=== PATIENT | male | born 1960 | race Caucasian/White ===

== ENCOUNTER 2017-06-08 13:19 | Inpatient (IN) | payer OTHER ==
[~2017-06-08] VITALS: Ht 180.3 cm; Wt 89.5 kg
[2017-06-08] VITALS (14 sets, daily range): BP systolic 90–140; BP diastolic 57–82; PULSE 49–71; RESP 16–20; TEMP 98.1–98.7; O2SAT 97–99
[2017-06-08] MEDS ORDERED: LISI20TA3 PO (13:31)
[2017-06-08] MEDS ORDERED: LIDOCAINE VISCOUS 2% SOLN 15 ML UDC PO ONE (13:45)
[2017-06-08] MEDS ORDERED: ALUMINUM/MAGNESIUM/SIMETH 30 ML CUP PO ONE (13:45)
--- NOTE | 2017-06-08 14:04 | PD ---
HPI Chief Complaint: Syncope/Near-Syncope Time Seen by Provider: 13:42 Travel History International Travel<30 days: No Contact w/Intl Traveler<30days: No Traveled to known affect area: No History of Present Illness HPI Patient presents with complaints of chest discomfort aggravated with deep inspiration. States he feels as if his lungs are inflamed. Denies any radiation to left arm or left neck. Denies any diaphoresis or shortness of breath. Nondiabetic. Positive history of hypertension and hyperlipidemia. Nonsmoker. No family history cardiac disease. Reports it was initially aggravated Friday after clearing a floor with heavy lifting. Symptoms resolved on . Patient completed the work on Friday with persistent discomfort through today. Denies any wheezing. PFSH Past Medical History Hypertension: Yes Medical other: Yes (PE) Past Surgical History Tonsillectomy: Yes Other Surgery: Yes (VARICOSE VEINS) Social History Alcohol Use: Yes Tobacco Use: No Substance Use: No Allergies-Medications (Allergen,Severity, Reaction): Coded Allergies: No Known Allergies (Unverified , 06/08/17) Reported Meds & Prescriptions Reported Meds & Active Scripts Active Reported Lisinopril-Hctz 20-25 Mg Tab 1 Tab PO DAILY Review of Systems General / Constitutional: No: Fever Eyes: No: Visual changes HENT: No: Headaches Cardiovascular: No: Chest Pain or Discomfort Respiratory: No: Shortness of Breath Gastrointestinal: No: Abdominal Pain Genitourinary: No: Dysuria Musculoskeletal: No: Pain Skin: No Rash Neurologic: No: Weakness Psychiatric: No: Depression Endocrine: No: Polydipsia Hematologic/Lymphatic: No: Easy Bruising Physical Exam Narrative GENERAL: Well-nourished, well-developed patient. SKIN: Focused skin assessment warm/dry. HEAD: Normocephalic. EYES: No scleral icterus. No injection or drainage. NECK: Supple, trachea midline. No JVD or lymphadenopathy. CARDIOVASCULAR: Regular rate and rhythm without murmurs, gallops, or rubs. RESPIRATORY: Breath sounds equal bilaterally. No accessory muscle use. GASTROINTESTINAL: Abdomen soft, non-tender, nondistended. MUSCULOSKELETAL: No cyanosis, or edema. BACK: Nontender without obvious deformity. No CVA tenderness. Data Data Last Documented VS Vital Signs Date Time Temp Pulse Resp B/P (MAP) Pulse Ox O2 Delivery O2 Flow Rate FiO2 06/08/17 14:38 55 16 106/67 (80) 98 Nasal Cannula 2.00 06/08/17 13:26 98.5 Orders Orders Electrocardiogram (06/08/17 13:42) Ckmb (Isoenzyme) Profile (06/08/17 13:42) Complete Blood Count With Diff (06/08/17 13:42) Comprehensive Metabolic Panel (06/08/17 13:42) Magnesium (Mg) (06/08/17 13:42) Prothrombin Time / Inr (Pt) (06/08/17 13:42) Act Partial Throm Time (Ptt) (06/08/17 13:42) Troponin I (06/08/17 13:42) Chest, Single Ap (06/08/17 13:42) Ecg Monitoring (06/08/17 13:42) Bilateral Bp Monitoring (06/08/17 13:42) Iv Access Insert/Monitor (06/08/17 13:42) Oximetry (06/08/17 13:42) Oxygen Administration (06/08/17 13:42) Al-Mag Hy-Si 40-40-4 Mg/Ml Liq (Mag-Al P (06/08/17 13:45) Lidocaine 2% Viscous (Xylocaine 2% Visco (06/08/17 13:45) CKMB (06/08/17 13:30) CKMB% (06/08/17 13:30) Ondansetron Inj (Zofran Inj) (06/08/17 15:15) Heparin Inj (Heparin Inj) (06/08/17 15:30) Heparin Inj (Heparin Inj) (06/08/17 21:30) Heparin Inj (Heparin Inj) (06/08/17 21:30) Heparin-D5w 25,000 U/250 Ml (Heparin-D5w (06/08/17 15:30) Cbc No Diff, Includes Plts (06/11/17 06:00) Act Partial Throm Time (Ptt) (06/08/17 22:29) Occult Blood (Hemoccult) Stool (06/08/17 15:29) Admit Order (Ed Use Only) (06/08/17 ) Steward/Stewardess Second / Telemetry JULIETTE.Q8H (06/08/17 15:36) Vital Signs (Adult) Q4H (06/08/17 15:36) Diet Npo (06/08/17 Dinner) Notify Dr: Other (06/08/17 15:36) Labs Laboratory Tests Test 06/08/17 13:30 White Blood Count 7.4 TH/MM3 Red Blood Count 5.32 MIL/MM3 Hemoglobin 16.0 GM/DL Hematocrit 46.2 % Mean Corpuscular Volume 86.9 FL Mean Corpuscular Hemoglobin 30.1 PG Mean Corpuscular Hemoglobin Concent 34.7 % Red Cell Distribution Width 13.2 % Platelet Count 226 TH/MM3 Mean Platelet Volume 8.1 FL Neutrophils (%) (Auto) 74.5 % Lymphocytes (%) (Auto) 19.6 % Monocytes (%) (Auto) 5.2 % Eosinophils (%) (Auto) 0.2 % Basophils (%) (Auto) 0.5 % Neutrophils # (Auto) 5.6 TH/MM3 Lymphocytes # (Auto) 1.4 TH/MM3 Monocytes # (Auto) 0.4 TH/MM3 Eosinophils # (Auto) 0.0 TH/MM3 Basophils # (Auto) 0.0 TH/MM3 CBC Comment DIFF FINAL Differential Comment Prothrombin Time 10.9 SEC Prothromb Time International Ratio 1.1 RATIO Activated Partial Thromboplast Time 24.5 SEC Blood Urea Nitrogen 13 MG/DL Creatinine 1.10 MG/DL Random Glucose 97 MG/DL Total Protein 8.1 GM/DL Albumin 4.1 GM/DL Calcium Level 9.0 MG/DL Magnesium Level 2.2 MG/DL Alkaline Phosphatase 49 U/L Aspartate Amino Transf (AST/SGOT) 46 U/L Alanine Aminotransferase (ALT/SGPT) 31 U/L Total Bilirubin 1.0 MG/DL Sodium Level 137 MEQ/L Potassium Level 3.6 MEQ/L Chloride Level 101 MEQ/L Carbon Dioxide Level 24.3 MEQ/L Anion Gap 12 MEQ/L Estimat Glomerular Filtration Rate 69 ML/MIN Total Creatine Kinase 377 U/L Creatine Kinase MB 28.8 NG/ML Creatine Kinase MB % 7.6 % Troponin I 1.75 NG/ML MDM Medical Decision Making Medical Screen Exam Complete: Yes Emergency Medical Condition: Yes Differential Diagnosis ACS, asthma, bronchitis Narrative Course Assessment and plan discussed with patient at bedside. EKG reveals bradycardia rate of [address] segment deviation. Cardiac enzymes noted. Chest x-ray showed no acute cardiopulmonary process. Physician Communication Physician Communication Spoke with Dr. marroquin who is in agreement we'll transfer to [facility] for likely catheterization tomorrow. Spoke with Dr. Keane who is in agreement will admit. Diagnosis Primary Impression: ACS (acute coronary syndrome) Med Zafar MD Jun 08, 2017 14:04
[2017-06-08 14:27] LABS: CHLORIDE 101 MEQ/L (98-107); SODIUM (NA) 137 MEQ/L (136-145)
--- NOTE | 2017-06-08 14:27 | RADRPT ---
EXAM DATE/TIME: 06/08/2017 14:09 [place] COMPARISON: No previous studies available for comparison. INDICATIONS : Chest tightness, dizziness, nasuea. MEDICAL HISTORY : None. SURGICAL HISTORY : None. ENCOUNTER: Initial ACUITY: 4 - 6 days PAIN SCORE: 6/10 LOCATION: Bilateral chest mid sternal pain FINDINGS: A single view of the chest demonstrates the lungs to be symmetrically aerated without evidence of mas s, infiltrate or effusion. The cardiomediastinal contours are unremarkable. Osseous structures are intact. CONCLUSION: Normal examination for a patient of this age. Young Miranda MD on June 08, 2017 at 14:25 Board Certified Radiologist. This report was verified electronically.
[2017-06-08 14:31] LABS: ALBUMIN 4.1 GM/DL (3.4-5.0); BICARBONATE 24.3 MEQ/L (21.0-32.0); BLOOD UREA NITROGEN 13 MG/DL (7-18); GLUCOSE,RANDOM 97 MG/DL (74-106); MAGNESIUM 2.2 MG/DL (1.5-2.5)
[2017-06-08 14:32] LABS: INTERNATIONAL NORMALIZED RATIO 1.1 RATIO; PROTHROMBIN TIME - PATIENT 10.9 SEC (9.8-11.6)
[2017-06-08 14:33] LABS: AUTOMATED NEUTROPHIL # 5.6 TH/MM3 (1.8-7.7); BASOPHIL % 0.5 % (0.0-2.0); EOSINOPHIL % 0.2 % (0.0-4.0); HEMATOCRIT 46.2 % (39.0-51.0); LYMPH % 19.6 % (9.0-44.0); LYMPHOCYTE # 1.4 TH/MM3 (1.0-4.8); MEAN CELL VOLUME 86.9 FL (80.0-100.0); MEAN CORPUSCULAR HEMOGLOBIN 30.1 PG (27.0-34.0); MEAN CORPUSCULAR HGB CONC 34.7 % (32.0-36.0); MEAN PLATELET VOLUME 8.1 FL (7.0-11.0); MONO % 5.2 % (0.0-8.0); MONOCYTE # 0.4 TH/MM3 (0-0.9); NEUT % 74.5 % (16.0-70.0); PLATELET COUNT 226 TH/MM3 (150-450); RED BLOOD COUNT 5.32 MIL/MM3 (4.50-5.90); RED CELL DISTRIBUTION WIDTH 13.2 % (11.6-17.2); WHITE BLOOD COUNT 7.4 TH/MM3 (4.0-11.0)
[2017-06-08 14:34] LABS: ALT (GPT) 31 U/L (12-78)
[2017-06-08 14:35] LABS: AST (GOT) 46 U/L (15-37); GLOMERULAR FILTRATION RATE 69 ML/MIN (>89)
[2017-06-08 14:36] LABS: TOTAL PROTEIN 8.1 GM/DL (6.4-8.2)
[2017-06-08 14:37] LABS: ALKALINE PHOSPHATASE 49 U/L (45-117)
[2017-06-08 14:47] LABS: TROPONIN I 1.75 NG/ML (0.02-0.05)
[2017-06-08] MEDS ORDERED: ONDANSETRON HCL 4 MG/2 ML VIAL IV PUSH ONE (15:15)
[2017-06-08] MEDS ORDERED: HEPARIN SODIUM - IV 10,000 UNITS/10 ML VIAL IV PUSH ONE (15:30)
[2017-06-08] MEDS ORDERED: HEPARIN-D5W 25,000 U/250 ML 250 ML IV PRN (15:30)
[2017-06-08] MEDS ORDERED: ASPIRIN 325 MG TAB PO SCH (15:45)
[2017-06-08] MEDS ORDERED: NITROGLYCERIN 0.4 MG SL 25 TABS/BTL SL PRN (15:45)
[2017-06-08] MEDS ORDERED: ONDANSETRON HCL 4 MG/2 ML VIAL IV PUSH PRN (15:45)
[2017-06-08] MEDS ORDERED: ACETAMINOPHEN 325 MG TAB PO PRN (15:45)
[2017-06-08] MEDS ORDERED: MORPHINE SULFATE 2 MG/ML INJ IV PUSH PRN (16:15)
--- NOTE | 2017-06-08 18:26 | HHI.HP ---
[facility] No Primary Care Physician Admission Diagnosis ACS Diagnoses: Chief Complaint: Chest discomfort "my lungs are inflamed " Travel History International Travel<30 Days: No Contact w/Intl Traveler <30 Da: No Traveled to Known Affected Are: No History of Present Illness 57 years old male who seems to live physically active lifestyle with history of hypertension and hyperlipidemia, history of 2 PE in the past 2014 due to deep venous thrombosis in the lower extremity, presented complaining of burning sensation in his chest prescribed it as "feels my lungs burning or inflamed " Patient started have that feeling since Friday while he was doing very active physical heavy lifting. Company denied by lightheaded and some short of breath, no sweatiness no transfer to the jaw or to the arms, this burning feeling several through and Friday but came right back today also with heavy lifting, no nausea or vomiting. In ED patient was found to have elevated troponin no significant , changes on EKG Patient told me he is pretty active, he play karate with his son however recently he started noticing worsening short of breath with activity, however no orthopnea or PND Review of Systems All systems reviewed and was positive for what is mentioned in history of present illness otherwise negative Past Family Social History Past Medical History Hypertension Hyperlipidemia 2 PE in 2015 due to DVT Past Surgical History Tonsillectomy Varicose vein Allergies: Coded Allergies: No Known Allergies (Unverified , 06/08/17) Family History No family history of coronary artery disease or general heart disease Social History No tobacco or illicit drug abuse, drink alcohol on weekend Physical Exam Vital Signs Vital Signs Date Time Temp Pulse Resp B/P (MAP) Pulse Ox O2 Delivery O2 Flow Rate FiO2 06/08/17 17:44 50 16 140/81 (100) 98 Nasal Cannula 2.00 06/08/17 16:07 60 16 109/66 (80) 97 Nasal Cannula 2.00 06/08/17 14:38 55 16 106/67 (80) 98 Nasal Cannula 2.00 06/08/17 14:35 55 16 90/62 (71) 98 Nasal Cannula 2.00 106/67 (80) 06/08/17 14:00 98 Nasal Cannula 06/08/17 14:00 Nasal Cannula 2.00 06/08/17 13:26 98.5 60 20 140/82 (101) 98 Physical Exam GENERAL: This is a well-nourished, well-developed patient, in no apparent distress. SKIN: No rashes, warm and dry HEAD: Atraumatic. Normocephalic. EYES: Pupils equal round and reactive. Extraocular motions intact. No scleral icterus. ENT: Nose without bleeding, or drainage, Airway patent. NECK: Trachea midline. Supple CARDIOVASCULAR: Regular rate and rhythm without murmurs, gallops, or rubs. RESPIRATORY: Fair air entry bilaterally. No wheezes, rales, or rhonchi. GASTROINTESTINAL: Abdomen soft, non-tender, nondistended. Positive bowel sounds MUSCULOSKELETAL: Extremities without clubbing, cyanosis, or edema. Pedal pulses appreciated NEUROLOGICAL: Awake and alert. Moves all extremity. Normal speech.no focal neurological deficit Laboratory Laboratory Tests Test 06/08/17 13:30 White Blood Count 7.4 Red Blood Count 5.32 Hemoglobin 16.0 Hematocrit 46.2 Mean Corpuscular Volume 86.9 Mean Corpuscular Hemoglobin 30.1 Mean Corpuscular Hemoglobin Concent 34.7 Red Cell Distribution Width 13.2 Platelet Count 226 Mean Platelet Volume 8.1 Neutrophils (%) (Auto) 74.5 Lymphocytes (%) (Auto) 19.6 Monocytes (%) (Auto) 5.2 Eosinophils (%) (Auto) 0.2 Basophils (%) (Auto) 0.5 Neutrophils # (Auto) 5.6 Lymphocytes # (Auto) 1.4 Monocytes # (Auto) 0.4 Eosinophils # (Auto) 0.0 Basophils # (Auto) 0.0 CBC Comment DIFF FINAL Differential Comment Prothrombin Time 10.9 Prothromb Time International Ratio 1.1 Activated Partial Thromboplast Time 24.5 Blood Urea Nitrogen 13 Creatinine 1.10 Random Glucose 97 Total Protein 8.1 Albumin 4.1 Calcium Level 9.0 Magnesium Level 2.2 Alkaline Phosphatase 49 Aspartate Amino Transf (AST/SGOT) 46 Alanine Aminotransferase (ALT/SGPT) 31 Total Bilirubin 1.0 Sodium Level 137 Potassium Level 3.6 Chloride Level 101 Carbon Dioxide Level 24.3 Anion Gap 12 Estimat Glomerular Filtration Rate 69 Total Creatine Kinase 377 Creatine Kinase MB 28.8 Creatine Kinase MB % 7.6 Troponin I 1.75 Result Diagram: 06/08/17 1330 06/08/17 1330 Imaging EKG reviewed personally by me showing supraventricular bradycardia, no significant ST changes just mild T-wave changes on V5 V6 questionable lateral ischemia Caprini VTE Risk Assessment Caprini VTE Risk Assessment: Mod/High Risk (score >= 2) Caprini Risk Assessment Model Point Value = 1 Point Value = 2 Point Value = 3 Point Value = 5 Age 41-60 Minor surgery BMI > 25 kg/m2 Swollen legs Varicose veins or History of unexplained or recurrent spontaneous Oral contraceptives or hormone replacement Sepsis (< 1 month) Serious lung disease, including pneumonia (< 1 month) Abnormal pulmonary function Acute myocardial infarction Congestive heart failure (< 1 month) History of inflammatory bowel disease Medical patient at bed rest Age 61-74 Arthroscopic surgery Major open surgery (> 45 min) Laparoscopic surgery (> 45 min) Malignancy Confined to bed (> 72 hours) Immobilizing plaster cast Central venous access Age >= 75 History of VTE Family history of VTE Factor V Leiden Prothrombin 11519M Lupus anticoagulant Anticardiolipin antibodies Elevated serum homocysteine Heparin-induced thrombocytopenia Other congenital or acquired thrombophilia Stroke (< 1 month) Elective arthroplasty Hip, pelvis, or leg fracture Acute spinal cord injury (< 1 month) Prophylaxis Regimen Total Risk Factor Score Risk Level Prophylaxis Regimen 0-1 Low Early ambulation 2 Moderate Order ONE of the following: *Sequential Compression Device (SCD) *Heparin 5000 units SQ BID 3-4 Higher Order ONE of the following medications: *Heparin 5000 units SQ TID *Enoxaparin/Lovenox 40 mg SQ daily (WT < 150 kg, CrCl > 30 mL/min) *Enoxaparin/Lovenox 30 mg SQ daily (WT < 150 kg, CrCl > 10-29 mL/min) *Enoxaparin/Lovenox 30 mg SQ BID (WT < 150 kg, CrCl > 30 mL/min) AND/OR *Sequential Compression Device (SCD) 5 or more Highest Order ONE of the following medications: *Heparin 5000 units SQ TID (Preferred with Epidurals) *Enoxaparin/Lovenox 40 mg SQ daily (WT < 150 kg, CrCl > 30 mL/min) *Enoxaparin/Lovenox 30 mg SQ daily (WT < 150 kg, CrCl > 10-29 mL/min) *Enoxaparin/Lovenox 30 mg SQ BID (WT < 150 kg, CrCl > 30 mL/min) AND *Sequential Compression Device (SCD) Assessment and Plan Assessment and Plan 57 years old male with history of hypertension hyperlipidemia presented with Chest discomfort manifested in burning feeling rule out ACS with increased troponin mostly non-STEMI Started on heparin drip, oxygen, nitroglycerin, aspirin, consulted cardiology plan to transfer to [place] for possible heart catheter in a.m., nothing by mouth after midnight History of hypertension seems to be within normal limit Bradycardia will avoid using beta alvin DVT prophylaxis patient has a history of DVT and PE in the past he will be on heparin drip Hyperlipidemia we'll do statin, check FLP Discussed Condition With Patient And in ED physician Physician Certification 2 Midnight Certification Type: Admission for Inpatient Services Order for Inpatient Services The services are ordered in accordance with Medicare regulations or non- Medicare payer requirements, as applicable. In the case of services not specified as inpatient-only, they are appropriately provided as inpatient services in accordance with the 2-midnight benchmark. Estimated LOS (days): 2 days is the estimated time the patient will need to remain in the hospital, assuming treatment plan goals are met and no additional complications. Post-Hospital Plan: [facility] John Keane MD Jun 08, 2017 18:26
[2017-06-08] MEDS: ATORVASTATIN 10 MG TAB PO SCH (20:43)
[2017-06-08] MEDS ORDERED: ALUMINUM/MAGNESIUM/SIMETH 30 ML CUP PO PRN (21:00)
[2017-06-08] MEDS ORDERED: POVIDONE IODINE 5% (ANTISEPSIS KIT) 4 APPLICATIONS EACH NARE PRN (21:15)
[2017-06-08] MEDS ORDERED: SODIUM CHLORID 0.9% 500 ML IV PRN (21:15)
[2017-06-08] MEDS ORDERED: CHLORHEXIDINE GLUCONATE 2 % 1 PACK (2 CLOTHS) TOPICAL PRN (21:15)
[2017-06-08] MEDS ORDERED: HEPARIN SODIUM - IV 10,000 UNITS/10 ML VIAL IV PUSH PRN ×2 (21:30)
[2017-06-08] MEDS: FAMOTIDINE 20 MG TAB PO SCH (22:10)
[2017-06-08 22:27] LABS: TROPONIN I 5.72 NG/ML (0.02-0.05)
[2017-06-08 23:13] LABS: CHOLESTEROL/ HDL RATIO 4.58 RATIO; HDL CHOLESTEROL 47.8 MG/DL (40.0-60.0)
[2017-06-09] VITALS (31 sets, daily range): BP systolic 119–148; BP diastolic 64–93; PULSE 46–92; RESP 16–19; TEMP 97.6–98.6; O2SAT 93–98
[2017-06-09 03:34] LABS: BASOPHIL % 0.6 % (0.0-2.0); EOSINOPHIL # 0.1 TH/MM3 (0-0.4); EOSINOPHIL % 0.7 % (0.0-4.0); HEMATOCRIT 42.6 % (39.0-51.0); HEMOGLOBIN 14.8 GM/DL (13.0-17.0); LYMPHOCYTE # 2.2 TH/MM3 (1.0-4.8); MEAN CELL VOLUME 87.3 FL (80.0-100.0); MEAN CORPUSCULAR HEMOGLOBIN 30.3 PG (27.0-34.0); MEAN CORPUSCULAR HGB CONC 34.7 % (32.0-36.0); MEAN PLATELET VOLUME 7.4 FL (7.0-11.0); MONO % 7.8 % (0.0-8.0); MONOCYTE # 0.6 TH/MM3 (0-0.9); NEUT % 62.9 % (16.0-70.0); PLATELET COUNT 184 TH/MM3 (150-450); RED BLOOD COUNT 4.88 MIL/MM3 (4.50-5.90); RED CELL DISTRIBUTION WIDTH 13.9 % (11.6-17.2); WHITE BLOOD COUNT 7.9 TH/MM3 (4.0-11.0)
[2017-06-09 03:54] LABS: CALCIUM 8.7 MG/DL (8.5-10.1); CREATININE 1.06 MG/DL (0.60-1.30)
[2017-06-09 04:03] LABS: TROPONIN I 7.37 NG/ML (0.02-0.05)
[2017-06-09] MEDS: POTASSIUM CHLOR 10 MEQ PREMIX 100 ML IV SCH ×3 (06:09→08:00)
[2017-06-09] MEDS: FAMOTIDINE 20 MG TAB PO SCH ×2 (07:30→21:12)
--- NOTE | 2017-06-09 08:25 | MB ---
cc: SUNG HIGH DATE OF CONSULTATION 06/09/2017 REASON FOR CONSULTATION Non-ST elevation [place]. HISTORY OF PRESENT ILLNESS This is a 57-year-old gentleman who is otherwise healthy with prior history of hypertension, hyperlipidemia and pulmonary embolism, who now presents with a substernal chest pain associated with shortness of breath. He was recently helping his do some work and had some inhalation of different fumes and felt like his lungs were burning. He then developed substernal chest pain and came into the emergency department. He also reports that with heavy exertional exercise he also develops a chest pain and this has been ongoing for a couple of months now. He does not have any prior cardiovascular history. He has not had any recent stress test or evaluation. In the emergency department EKG showed no significant ischemic changes but first troponin came back elevated at 7, and he was transferred over from the [facility]. He was put on a heparin drip and has been asymptomatic since. PAST MEDICAL HISTORY 1. Hypertension. 2. Hyperlipidemia. 3. Pulmonary embolism secondary to deep vein thrombosis related to varicose vein surgery. He was transiently on anticoagulation for about 3 months, has had no issue since, currently not on anticoagulation. ALLERGIES No known drug allergies. FAMILY HISTORY Denies any family history of early coronary artery disease or sudden cardiac . SOCIAL HISTORY Denies alcohol, tobacco or drug use. REVIEW OF SYSTEMS A 12-point review of systems was performed and negative unless otherwise noted in the history of present illness. PHYSICAL EXAMINATION VITAL SIGNS: Temperature 97, pulse 49, blood pressure 134/79 mmHg. GENERAL: Alert and oriented x3, in no acute distress. HEENT: Pupils are reactive to light and accommodation. Extraocular movements are intact. NECK: No jugular venous distention. No thyromegaly. No lymphadenopathy. No carotid bruits. LUNGS: Clear to auscultation bilaterally. CARDIOVASCULAR: Regular rate and rhythm without murmurs, rubs or gallops. ABDOMEN: Nontender, nondistended. Good bowel sounds. No hepatosplenomegaly. EXTREMITIES: No clubbing, cyanosis or edema. Good peripheral pulses. NEUROLOGIC: Cranial nerves intact. Motor and sensory grossly intact. LABORATORY WBC 7.9, hemoglobin 14.8, platelet count 184. INR is 1.1. Sodium 138, potassium 3.4, BUN 16, creatinine 1.06. ELECTROCARDIOGRAM Electrocardiogram with normal sinus rhythm, some nonspecific ST-T wave changes in the lateral leads, I, aVL, V5, V6. ASSESSMENT 1. Non-ST elevation myocardial infarction. 2. Hypertension. 3. Hyperlipidemia. 4. History of pulmonary embolism, thought to be traumatic secondary to varicose vein surgery in 2014. PLAN Given the patient's suggestive symptoms, dynamic T-wave change with electrocardiogram and elevated troponin, it appears consistent with symptoms of acute coronary syndrome. The patient is on a heparin drip and will hold that in anticipation of left heart catheterization. Will check a 2-D echocardiogram. The patient has baseline bradycardia and will hold off on beta alvin therapy. MD LUIS ALBERTO Leonard/CARLOS /7:31 AM /8:10 AM
[2017-06-09] MEDS ORDERED: HEPARIN-NS/PF FLUSH BAG 1,000 ML IV FLUSH ONE (09:07)
[2017-06-09] MEDS ORDERED: MIDAZOLAM HCL 2 MG/2 ML VIAL ONE ×3 (09:07→12:43)
[2017-06-09] MEDS ORDERED: HEPARIN SODIUM - IV 10,000 UNITS/10 ML VIAL ONE ×2 (09:11→12:53)
[2017-06-09] MEDS ORDERED: PNEUMOCOCCAL POLYVALENT INJ 25 MCG/0.5 ML SYR IM ONE (10:00)
--- NOTE | 2017-06-09 10:12 | CATHPROC ---
[employer] HIS Report Study Information Study Number Admission Scheduled Start Study Start [id number] Jun 08 2017 3:40PM 06/08/2017 Jun 09 2017 9:02AM [facility] Catheterization Admit Source Facility Department Other [facility] - Network Operations Specialist Physician and Clinical Staff Initial Solomon Saldivar Lead Maintenance Technician Edouard Chou,RN Recorder Monae Banks ,RT(R) Scrub Elizabeth Guaman,JACKET CHANGER TECH2 Procedures Performed Procedure Location (Site) Vessel Name Angiogram LV LV Ventricle Coronary Angiograms LCA Left Coronary Coronary Angiograms RCA Right Coronary Coronary Angiograms FERNANDEZ FERNANDEZ L Heart Cath Equipment Time Heavy Duty Diesel Mechanic Description Size Mfg Part Number Used/Scraped TRANSDUCER, TRUWAVE [id number] 09:12 MCCANN GASPAR * Used W/STOCKCOCK *[id number] *[id number] 09:12 [employer]gate PACK, CCL CUSTOM * Used *[id number] 09:12 [employer]gate SUPPORT, ARTERIAL ADULT 59112 *[id number] Used [id number] 09:12 [employer]inging Weekly Flower Delivery PACER PEN, SKIN DUAL W/ RULER * Used *[id number] 09:13 MEDTRONIC JR 5.0 DXTERITY CATHETER fr 5 [id number] Used PIG ANG 145 DXTERITY 09:53 MEDTRONIC FR 5 [id number] Used CATHETER BAND, RADIAL COMPRESSION TR [id number] 09:59 Brightergy 24CM Used SHORT 24 *[id number] SHEATH, FR6 RADIAL PRELUDE 09:12 Brightergy FR 6 [id number] Used EASE 11CM [id number] 09:12 Brightergy WIRE, EXCHANGE 260CM 3MMJ 260CM Used *[id number] 09:54 NAMIC TUBING, HIGH PRESSURE 20" 20" Used *[id number] 09:12 NYCOMED OMNIPAQUE, 350 MG, 150ML 150ML [id number] Used [id number] 09:12 GRADY MEDICAL BLANKET,WARM AIR CCL * Used *[id number] Equipment Model, Serial, Lot Number and Expiration Data Description Model Number Serial Number Lot Number Expiration Date JR 5.0 DXTERITY CATHETER [id number] 10-18-2019 History: Current Medications Medication Dosage/Unit Route Frequency Last Date/Time Taken LIPITOR LOVENOX ASA LISINOPRIL History: Allergies Allergy Reaction No Known Allergies History: Risk Factors Family History of Hypertension Dyslipidemia Previous [place] Previous Heart Failure Premature CAD Yes Yes No No No Prior Valve Prior PCI Prior CABG Surgery No No No Cerebrovascular Peripheral Artery Chronic Lung On Dialysis Diabetes Disease Disease Disease No No No No No History: Symptoms/Diagnosis Selection Items SOB History: Stress Tests Stress or Imaging Studies Performed No History: Other Disease Selection Items HTN History: Other Current Smoker Quit Packs a Day Years Used Pack Years No 20 Years Ago 1 20 20 Labs Hgb (g/dl) Hct (%) WBC (l/cumm) Platelets (thousands) 11.60-17.00 35.00-51.00 4.00-11.00 150.00-450.00 14.8 42.6 7.9 184 Glucose (mg/dl) BUN (mg/dl) Creatinine (mg/dl) BUN:Creatinine (1:x) 74.00-106.00 7.00-18.00 0.50-1.30 10.00-20.00 100 16 1.1 14.5 Na (meq/l) K (meq/l) 136.00-145.00 3.50-5.10 138 3.4 INR (PTT:PT) 0.90-1.10 1.1 Troponin I (ng/ml) CPK (u/l) CPK-MB (ng/ML) 0.02-0.05 26.00-308.00 0.50-3.60 7.37 592 46.1 Medication Medication Total Dose (Bolus/Oral) Medication Total Dosage/Unit 1% XYLOCAINE 5 mL FENTANYL 100 mcg HEPARIN 5000 units VERSED 3 mg Medications (Bolus/Oral) Medication Time Given Dosage/Unit Administered By Reason VERSED 06/09/2017 9:31:47 AM 2 mg Edouard Chou 2 mg VERSED given in lab by Edouard Chou RN in Left Antecubital via Peripheral IV. Ordered by Solomon Roberts. FENTANYL 06/09/2017 9:32:59 AM 50 mcg Edouard Chou 50 mcg FENTANYL given in lab by Edouard Chou RN in Left Antecubital via Peripheral IV. Ordered by Solomon Brooks. 1% XYLOCAINE 06/09/2017 9:36:08 AM 5 mL Solomon Roberts 5 mL 1% XYLOCAINE given in lab by Solomon Roberts in Right Radial via Subcutaneous. Ordered by Solomon Roberts. VERSED 06/09/2017 9:36:48 AM 1 mg Edouard Chou 1 mg VERSED given in lab by Edouard Chou RN in Left Antecubital via Peripheral IV. Ordered by Solomon Roberts. FENTANYL 06/09/2017 9:37:00 AM 50 mcg Edouard Chou 50 mcg FENTANYL given in lab by Edouard Chou RN in Left Antecubital via Peripheral IV. Ordered by Solomon Brooks. HEPARIN 06/09/2017 9:39:00 AM 5000 units Edouard Chou 5000 units HEPARIN given in lab by Edouard Chou RN in Left Antecubital via Peripheral IV. Ordered b y Solomon Roberts. Medication (Drip) Medication Time Given Dosage/Unit Concentration/Unit Diluent (ml) Solution IV Solutions 06/09/2017 9:02:48 AM 50 mL (IV) NaCl .9 Patient arrived on IV Solutions in Left Antecubital via Peripheral IV. Pump/Drip Flow using NaCl .9. Initial Case Assessment Cardiovascular HR NIBP Chest Pain 58 143/85 0 Edema Present Skin color Skin None Normal Warm Dry Circulatory - Right Pulses Dorsalis Pedis Femoral Radial 1 2 2 Scale (0,1,2,3,4,d) Scale (0,1,2,3,4,d) Circulatory - Lower Extremities Color Lower Right Color Lower Left Normal Normal Neurological State Oriented to time-place- Alert Moves all extremities person Respiration - General Respiration Rate SpO2 (%) (B/min) 14 94 Final Case Assessment Cardiovascular HR NIBP Chest Pain 68 118/81 0 Edema Present Skin color Skin None Normal Warm Dry Circulatory - Right Pulses Dorsalis Pedis Femoral Radial 1 2 2 Scale (0,1,2,3,4,d) Scale (0,1,2,3,4,d) Neurological State Oriented to time-place- Alert Moves all extremities person Respiration - General Respiration Rate SpO2 (%) (B/min) 10 96 Chronological Log Time Study Chronological Log 8:55:18 Patient arrived via Bed. Heparin drip DCed upon diamond picker per MD. 8:55:26 Patient Name, D.O.B, / Armband Verified By R.N. 9:02:30 Consent signed by the physician and the patient and verified by the Network Operations Specialist staff. 9:02:31 Pre-op and post- op instructions given; patient acknowledges understanding of instructions. 9:02:31 Verbal Stimulation=2 Physical Stimulation=2 Airway=2 Respiration=2 TOTAL=8. (0=absent, 1=skinner ited, 2=present) 9:02:33 Presedation assessment performed by Network Operations Specialist RN. 9:02:34 Allens test performed on the right radial and ulnar artery. Positive 9:02:43 Patient has been NPO for More than 6Hrs. 9:02:43 Skin Breakdown- none per patient 9:02:44 Patient Warmer Placed on the Table. 9:02:46 Pricila Prominences Protected 9:02:47 A # 20 IV was noted in the Antecubital (right). Grade = 0 9:02:47 A # 20 IV was noted in the Antecubital (left). Grade = 0 9:02:48 Patient arrived on IV Solutions in Left Antecubital via Peripheral IV. Pump/Drip Flow using NaCl .9. 9:02:48 History and physical on the chart or being dictated. Assessment: Initial Case, HR=58 BPM, CNEG=461/85 mmhg, Chest Pain=0, Edema=None, Color=Normal, S kin = Warm, Dry Right Pulses: Ephraim Ped=1, Femoral=2, Radial=2 9:02:49 Lower Right Extremities: Color=Normal Lower Left Extremities: Color=Normal Neurological: State=Alert, Ox3, [place] Respiration: Resp=14 B/min, SpO2=94 % Vitals capture started with the following parameters, Patient=Adult, Interval=5 min, Initial Pre dqhws=518 mmHg, 9:05:03 Deflation Rate=5 mmHg, Cuff placed on Left Arm 9:05:41 HR=58 bpm, JCIZ=127/85 mmhg, SpO2=95.0 %, Resp=6 B/min, Pain=0, Marina=8, Álvarez=2 9:10:38 HR=63 bpm, QBZR=892/88 mmhg, SpO2=95.0 %, Resp=7 B/min, Pain=0, Marina=8, Álvarez=2 9:15:35 HR=65 bpm, TPFO=225/93 mmhg, Resp=10 B/min, Pain=0, Marina=8, Álvarez=2 9:18:27 Right Radial and groin(s) prepped with 2% chlorhexidine, and draped after a 3 min. waiting t tobias. 9:19:19 Pressure channel 1 zeroed. 9:19:52 MD paged 9:21:11 Reference ECG taken 9:21:15 HR=59 bpm, TDJH=788/81 mmhg, SpO2=94.0 %, Resp=13 B/min, Pain=0, Marina=8, Álvarez=2 9:25:24 MD arrived. 9:25:35 HR=60 bpm, OMIV=103/80 mmhg, SpO2=93.0 %, Resp=6 B/min, Pain=0, Marnia=8, Álvarez=2 9:30:38 HR=63 bpm, OYOA=930/80 mmhg, SpO2=92.0 %, Resp=46 B/min, Pain=0, Marina=8, Álvarez=2 9:31:47 2 mg VERSED given in lab by Edouard Chou RN in Left Antecubital via Peripheral IV. Ordered by Solomon Roberts. 9:32:59 50 mcg FENTANYL given in lab by Edouard Chou RN in Left Antecubital via Peripheral IV. Ord ered by Solomon Roberts. Time Out. Correct patient, correct procedure, correct physician, power injector not loaded with contrast with surgical 9:34:31 team present. Time Out Concurred by and individual staff in procedure. 9:34:48 Case Start 9:35:35 HR=69 bpm, DGIN=836/79 mmhg, SpO2=94.0 %, Resp=17 B/min, Pain=0, Marina=8, Álvarez=2 9:36:08 5 mL 1% XYLOCAINE given in lab by Solomon Roberts in Right Radial via Subcutaneous. Ordered b Solomon Parikh. 9:36:48 1 mg VERSED given in lab by Edouard Chou RN in Left Antecubital via Peripheral IV. Ordered by Solomon Roberts. 9:37:00 50 mcg FENTANYL given in lab by Edouard Chou RN in Left Antecubital via Peripheral IV. Ord ered by Solomon Roberts. 9:38:58 Access site was Right Radial Artery. 9:39:00 5000 units HEPARIN given in lab by Edouard Chou RN in Left Antecubital via Peripheral IV. Ordered by Solomon Roberts. A SHEATH, FR6 RADIAL PRELUDE EASE 11CM FR 6 was advanced into the Radial (right) using the Perc utaneous 9:40:09 technique. 9:40:41 HR=74 bpm, BESC=746/64 mmhg, SpO2=90.0 %, Resp=20 B/min, Pain=0, Marina=8, Álvarez=2 A JR 5.0 DXTERITY CATHETER fr 5 was advanced over a wire. OMNIPAQUE, 350 MG, 150ML 150ML was us ed for 9:41:45 injections. Recorded Pressure: LV, HR=61, Condition=Condition 1 9:43:08 (Left Ventricle) LV 97/-10/6 Recorded Pressure: LV, Ao, HR=61, Condition=Condition 1 9:43:31 (Left Ventricle) LV 85/-5/5, (Aorta) Ao 83/50/64 9:44:12 The RCA was injected and visualized at various angles. OMNIPAQUE, 350 MG, 150ML 150ML used. Recorded Pressure: Ao, HR=76, Condition=Condition 1 9:44:39 (Aorta) Ao 84/58/70 After removing the current catheter a JL 3.5 INFINITI CATHETER FR 5 was advanced over a WIRE, E XCHANGE 260CM 9:44:59 3MMJ 260CM. 9:45:40 HR=67 bpm, FVPG=556/57 mmhg, SpO2=92.0 %, Resp=16 B/min, Pain=0, Marina=8, Álvarez=2 9:47:56 The LCA was injected and visualized at various angles. OMNIPAQUE, 350 MG, 150ML 150ML used. 9:50:35 HR=78 bpm, ZLHF=311/79 mmhg, SpO2=92.0 %, Resp=14 B/min, Pain=0, Marina=8, Álvarez=2 9:52:38 The FERNANDEZ was injected and visualized at various angles. OMNIPAQUE, 350 MG, 150ML 150ML used. After removing the current catheter a PIG ANG 145 DXTERITY CATHETER FR 5 was advanced over a WI RE, EXCHANGE 9:53:06 260CM 3MMJ 260CM. 9:55:04 The LV was injected at 10 cc/sec for a total of 30. OMNIPAQUE, 350 MG, 150ML 150ML used. 9:55:36 HR=64 bpm, VERS=750/81 mmhg, SpO2=95.0 %, Resp=11 B/min, Pain=0, Marina=8, Álvarez=2 9:56:44 Case End Assessment: Final Case, HR=68 BPM, HEKM=520/81 mmhg, Chest Pain=0, Edema=None, Color=Normal, Sk in = Warm, Dry 9:56:59 Right Pulses: Ephraim Ped=1, Femoral=2, Radial=2 Neurological: State=Alert, Ox3, [place] Respiration: Resp=10 B/min, SpO2=96 % 9:57:00 Catheter(s) removed without difficulty Radial Compression Device Used. 12 mLs of air placed in BAND, RADIAL COMPRESSION TR SHORT 24 24 CM. Affected 9:57:03 hand 94 % O2 saturation. 9:57:06 Sterile dressing applied to site 9:57:07 No case complications noted. 9:57:09 Cine recording checked. 9:57:10 Bedside Report will be given. 9:57:26 A Left Heart Cath was performed. 10:00:49 Vitals capture stopped. 10:07:24 Patient moved to [facility] End Study - Contrast Media Used In Study Contrast Total Opened (mL) Total Used (mL) Total Wasted (mL) Omnipaque 70 70 0 End Study - Maximum Contrast Load Max Contrast Load (mL) 393.2 End Study - Radiation Exposure Fluoro Time (minutes) 2.8 End Study - Patient Disposition Complications Transferred To Interventional Outcome No Telemetry Bed No attempt made
[2017-06-09] MEDS ORDERED: MISC INFORMATION XX ONE (10:15)
[2017-06-09] MEDS ORDERED: BACITRACIN OINT 0.9 GM PKT TOP ONE (10:15)
[2017-06-09] MEDS: POTASSIUM CHLOR 20 MEQ PREMIX 100 ML IV SCH ×2 (10:21→12:41)
--- NOTE | 2017-06-09 10:35 | MA ---
cc: SUNG HIGH DATE 06/09/2017 PROCEDURE PERFORMED 1. Fluoroscopy with interpretation. 2. Coronary angiography. 3. Left heart catheterization. 4. Left ventriculography. 5. Left upper extremity peripheral angiography. METHOD The risks, benefits and alternatives were discussed with the patient. The patient understood and consented to the procedure. The patient was brought into the catheterization lab and placed on the catheterization table. The right wrist was prepped and draped in sterile fashion. The right wrist was anesthetized with 2% lidocaine. The right radial artery was cannulated and a 6 Iraqi, 7 cm sheath was placed without difficulty. LEFT HEART CATHETERIZATION Intraventricular hemodynamics measured at 85/5 mmHg. LEFT VENTRICULOGRAPHY Left ventriculography was performed in a right anterior oblique view using a 6 Iraqi angled pigtail catheter and a 30 cc contrast injection with good opacification. Left ventricular ejection fraction was visually estimated at 65% without regional wall motion abnormalities. There was 1+ mitral regurgitation, likely iatrogenic. CORONARY ANGIOGRAPHY The left coronary circulation was selectively engaged with a 6 Iraqi JL 3.5 catheter. The right coronary circulation was selectively engaged with a 6 Iraqi JR5 catheter. 1. Left Main: The left main coronary is widely patent. 2. LAD: The left anterior descending coronary has minor luminal irregularities proximally with some moderate calcium present. There is a bifurcation of a high diagonal branch, moderate caliber size, with a 75% proximal stenosis. The midsegment of the left anterior descending coronary just beyond the takeoff of the diagonal branch has a 75% tubular stenosis. The remainder of the vessel has only minor luminal irregularities. 3. Left Circumflex: The left circumflex gives rise to an obtuse marginal branch. The mid circumflex just proximal to the bifurcation has a 75% stenosis. In the proximal obtuse marginal branch there is an 80% stenosis. The remainder of the vessel has minor luminal irregularities. 4. RCA: The right coronary is a dominant vessel giving rise to a posterior descending branch. The right coronary itself has only minor luminal irregularities with mild calcium present. The posterior descending branch has somewhat diffuse disease proximally, about a 2.25 to 2.5 mm caliber size vessel, 80% proximal stenosis. The posterolateral branch is occluded and fills faintly with collaterals. LEFT UPPER EXTREMITY ANGIOGRAPHY The left subclavian is selectively engaged with a 6 Iraqi JL 3.5 catheter. The left subclavian is widely patent. The left internal mammary is visualized and appears to be patent. CONCLUSIONS 1. Severe [place] three-vessel coronary disease. 2. Normal left ventricular systolic function. 3. Normal left-sided filling pressures. PLAN Given the diffuse nature of disease I think he would probably be best suited for coronary bypass surgery, particularly because he is young and the bifurcation of the diagonal and left anterior descending coronary stenosis would be difficult to approach percutaneously. Will consult Dr. Julieth Cheney for surgical consultation. MD LUIS ALBERTO Leonard/CARLOS /10:04 AM /10:22 AM
[2017-06-09] MEDS ORDERED: IOHEXOL 350 MG/ML 100 ML BTL (for Cath Lab) OTHER ONE (10:45)
--- NOTE | 2017-06-09 11:02 | PD.CAR.PN ---
CVT Progress Note Subjective/Hospital Course: sts data discussed with pt / full consult to follow RISK SCORES About the STS Risk Calculator Procedure: CAB Only Risk of Mortality: 0.395% Morbidity or Mortality: 6.806% Long Length of Stay: 1.815% Short Length of Stay: 70.537% Permanent Stroke: 0.469% Prolonged Ventilation: 4.325% DSW Infection: 0.243% Renal Failure: 1.107% Reoperation: 3.081% Objective: Vital Signs Date Time Temp Pulse Resp B/P (MAP) Pulse Ox O2 Delivery O2 Flow Rate FiO2 06/09/17 10:01 52 06/09/17 08:01 98 Nasal Cannula 2.00 06/09/17 08:01 98.6 66 18 125/79 (94) 98 06/09/17 08:00 56 06/09/17 07:01 52 06/09/17 06:05 49 06/09/17 05:00 52 06/09/17 04:00 51 06/09/17 03:30 97 Nasal Cannula 2.00 06/09/17 03:30 97.6 54 16 134/79 (97) 97 06/09/17 03:00 51 06/09/17 02:00 55 06/09/17 01:00 60 06/09/17 00:00 46 06/08/17 23:00 98.1 71 16 133/82 (99) 97 06/08/17 23:00 61 06/08/17 23:00 97 Nasal Cannula 2.00 06/08/17 22:00 62 06/08/17 21:00 50 06/08/17 20:15 99 Nasal Cannula 2.00 06/08/17 20:15 98.7 50 16 130/75 (93) 99 06/08/17 20:10 49 06/08/17 19:11 98.7 54 20 131/74 (93) 98 06/08/17 18:42 58 16 113/57 (75) 99 Nasal Cannula 2.00 06/08/17 18:38 98 Nasal Cannula 2.00 06/08/17 17:44 50 16 140/81 (100) 98 Nasal Cannula 2.00 06/08/17 16:07 60 16 109/66 (80) 97 Nasal Cannula 2.00 06/08/17 14:38 55 16 106/67 (80) 98 Nasal Cannula 2.00 06/08/17 14:35 55 16 90/62 (71) 98 Nasal Cannula 2.00 106/67 (80) 06/08/17 14:00 98 Nasal Cannula 06/08/17 14:00 Nasal Cannula 2.00 06/08/17 13:26 98.5 60 20 140/82 (101) 98 Labs: Laboratory Tests Test 06/09/17 03:25 White Blood Count 7.9 TH/MM3 (4.0-11.0) Red Blood Count 4.88 MIL/MM3 (4.50-5.90) Hemoglobin 14.8 GM/DL (13.0-17.0) Hematocrit 42.6 % (39.0-51.0) Mean Corpuscular Volume 87.3 FL (80.0-100.0) Mean Corpuscular Hemoglobin 30.3 PG (27.0-34.0) Mean Corpuscular Hemoglobin Concent 34.7 % (32.0-36.0) Red Cell Distribution Width 13.9 % (11.6-17.2) Platelet Count 184 TH/MM3 (150-450) Mean Platelet Volume 7.4 FL (7.0-11.0) Neutrophils (%) (Auto) 62.9 % (16.0-70.0) Lymphocytes (%) (Auto) 28.0 % (9.0-44.0) Monocytes (%) (Auto) 7.8 % (0.0-8.0) Eosinophils (%) (Auto) 0.7 % (0.0-4.0) Basophils (%) (Auto) 0.6 % (0.0-2.0) Neutrophils # (Auto) 5.0 TH/MM3 (1.8-7.7) Lymphocytes # (Auto) 2.2 TH/MM3 (1.0-4.8) Monocytes # (Auto) 0.6 TH/MM3 (0-0.9) Eosinophils # (Auto) 0.1 TH/MM3 (0-0.4) Basophils # (Auto) 0.0 TH/MM3 (0-0.2) CBC Comment DIFF FINAL Differential Comment Activated Partial Thromboplast Time 42.5 SEC (24.3-30.1) Blood Urea Nitrogen 16 MG/DL (7-18) Creatinine 1.06 MG/DL (0.60-1.30) Random Glucose 100 MG/DL (74-106) Calcium Level 8.7 MG/DL (8.5-10.1) Sodium Level 138 MEQ/L (136-145) Potassium Level 3.4 MEQ/L (3.5-5.1) Chloride Level 103 MEQ/L (98-107) Carbon Dioxide Level 28.0 MEQ/L (21.0-32.0) Anion Gap 7 MEQ/L (5-15) Estimat Glomerular Filtration Rate 72 ML/MIN (>89) Total Creatine Kinase 592 U/L (39-308) Creatine Kinase MB 46.1 NG/ML (0.5-3.6) Creatine Kinase MB % 7.8 % (0.0-4.0) Troponin I 7.37 NG/ML (0.02-0.05) Result Diagram: 06/09/17 0325 06/09/17 0325 Estela Stewart Jun 09, 2017 11:02
[2017-06-09] MEDS ORDERED: DEXTROSE 50% IN WATER 50 ML VIAL(D50) IV PUSH PRN (11:15)
[2017-06-09] MEDS ORDERED: CEFAZOLIN INJ 500 MG in SODIUM CHLORIDE 0.9% IRR BTL 500 ML IRRIGATION SCH (11:15)
[2017-06-09] MEDS ORDERED: SODIUM CHLORIDE 0.9% FLUSH 10 ML FLUSH IV FLUSH PRN (11:15)
[2017-06-09 11:58] LABS: BILIRUBIN, URINE NEG (NEG); BLOOD, URINE NEG (NEG); GLUCOSE,URINE NEG (NEG); KETONE, URINE NEG (NEG); NITRITE,URINE NEG (NEG); PH, URINE 7.5 (5.0-8.5); URINE COLOR YELLOW (YELLW/STRAW); URINE LEUKOCYTE ESTERASE NEG (NEG)
[2017-06-09] MEDS ORDERED: ceFAZolin 2 GM PREMIX 50 ML IV SCH (12:00)
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
--- NOTE | 2017-06-09 12:23 | EKG ---
Date Performed: 06/09/2017 Time Performed: 07:55:20 PTAGE: 57 years EKG: Sinus bradycardia with PVC(s). Lateral T wave changes are nonspecific Borderline ECG PREVIOUS TRACING : 06/09/2017 01.44 Since the prior tracing, there has been no significant vaughn DOCTOR: Caesar Jacobson Interpretating Date/Time 06/09/2017 12:21:02
--- NOTE | 2017-06-09 12:23 | EKG ---
Date Performed: 06/09/2017 Time Performed: 01:44:24 PTAGE: 57 years EKG: Sinus bradycardia Lateral T wave changes are nonspecific Borderline ECG Since the prior tra cing, there has been no significant change DOCTOR: Caesar Jacobson Interpretating Date/Time 06/09/2017 12:21:12
[2017-06-09 12:47] LABS: TROPONIN I 9.34 NG/ML (0.02-0.05)
[2017-06-09] MEDS ORDERED: CHLORHEXIDINE GLUCONATE 4% SOLN 120 ML BTL TOPICAL SCH (13:00)
[2017-06-09] MEDS ORDERED: METOPROLOL TARTRATE 25 MG TAB PO SCH (13:00)
[2017-06-09] MEDS ORDERED: INSULIN REGULAR (IV INFUSION) 100 UNITS in SODIUM CHLORIDE 0.9% INJ 99 ML IV PRN (13:00)
[2017-06-09] MEDS ORDERED: ADENOSINE STRESS TEST INJ 90 MG/30 ML VIAL ONE (13:02)
--- NOTE | 2017-06-09 14:20 | EKG ---
Date Performed: 06/08/2017 Time Performed: 14:02:59 PTAGE: 57 years EKG: SUPRAVENTRICULAR BRADYCARDIA, possibly mukul ST DEVIATION AND MODERATE T-WAVE ABNORMALITY, CONSIDER LATERAL ISCHEMIA ABNORMAL ECG Clinical correlation is strongly recommended NO PREVIOUS TRACING DOCTOR: Caesar Jacobson Interpretating Date/Time 06/09/2017 14:20:11
--- NOTE | 2017-06-09 14:24 | EKG ---
Date Performed: 06/08/2017 Time Performed: 20:32:26 PTAGE: 57 years EKG: Sinus bradycardia Compared to PREVIOUS TRACING Sinus rhythm has returned with improvement of nonspecific ST T wave changes PREVIOUS TRACIN06/08/2017 14.02 DOCTOR: Caesar Jacobson Interpretating Date/Time 06/09/2017 14:23:18
--- NOTE | 2017-06-09 15:14 | RADRPT ---
EXAM DATE/TIME: 06/09/2017 13:15 [facility] COMPARISON: No previous studies available for comparison. INDICATIONS : Pre-op cardiac surgery. MEDICAL HISTORY : Hypertension. Gastroesophageal reflux disease. Deep venous thrombosis. Pulmonary embolism. SURGICAL HISTORY : Tonsillectomy. ENCOUNTER: Initial ACUITY: 1 day PAIN SCORE: 0/10 LOCATION: Bilateral legs. TECHNIQUE: Venous ultrasound of the left and right leg was performed from the inguinal ligament to the proximal calf. Real-time, color Doppler and spectral tracing, compression and augmentation techniques were us ed. FINDINGS: RIGHT LEG: There is normal compressibility of the deep venous system from the inguinal region to the proximal ca lf. No echogenic clot is seen in the lumen of the common femoral, femoral, popliteal, and posterior tibial veins. There is a normal response of the venous system to proximal and distal augmentation an d respiration. In the right leg there is no greater saphenous lesser saphenous vein from previous ve in stripping. LEFT LEG: There is normal compressibility of the deep venous system from the inguinal region to the proximal ca lf. No echogenic clot is seen in the lumen of the common femoral, femoral, popliteal, and posterior tibial veins. There is a normal response of the venous system to proximal and distal augmentation an d respiration. CONCLUSION: Negative for deep venous thrombosis. In the right leg there is no greater saphenous or lesser saphen ous vein. Izaiah Man MD FACR on June 09, 2017 at 15:11 Board Certified Radiologist. This report was verified electronically.
--- NOTE | 2017-06-09 15:17 | RADRPT ---
EXAM DATE/TIME: 06/09/2017 13:11 [facility] COMPARISON: No previous studies available for comparison. INDICATIONS : Pre-op cardiac surgery. MEDICAL HISTORY : Hypertension. Gastroesophageal reflux disease. Deep venous thrombosis. Pulmonary embolism. SURGICAL HISTORY : Tonsillectomy. ENCOUNTER: Initial ACUITY: 1 day PAIN SCORE: 0/10 LOCATION: Bilateral neck PEAK SYSTOLIC VELOCITIES (cm/sec): ICA/CCA RATIO: Right: 74.9 Left: 1.0 ICA: Right: 89.2 Left: 94.0 CCA: Right: 110.9 Left: 94.0 ECA: Right: 74.9 Left: 99.1 VERTEBRAL: Right: 51.4 antegrade Left: 56.4 antegrade Elevated flow velocities and ICA/CCA ratios have been found to correlate with increased degrees of vessel stenosis, calculated as percentage of diameter relative to a normal segment of distal ICA/CCA FINDINGS: RIGHT CAROTID: No significant stenosis is visualized. The waveforms are within normal limits. LEFT CAROTID: No significant stenosis is visualized. The waveforms are within normal limits. VERTEBRAL ARTERIES: Antegrade flow is seen in both vertebral arteries. MISCELLANEOUS: None. CONCLUSION: 1. No significant atherosclerotic disease or stenosis is identified within either internal carotid ar fatuma. 2. There is antegrade flow within both vertebral arteries. Milo Gutiérrez MD on June 09, 2017 at 15:14 Board Certified Radiologist. This report was verified electronically.
--- NOTE | 2017-06-09 15:21 | RADRPT ---
EXAM DATE/TIME: 06/09/2017 13:24 [facility] COMPARISON: No previous studies available for comparison. INDICATIONS : Pre-op cardiac surgery. MEDICAL HISTORY : Hypertension. Gastroesophageal reflux disease. Deep venous thrombosis. Pulmonary embolism. SURGICAL HISTORY : Tonsillectomy. ENCOUNTER: Initial ACUITY: 1 day PAIN SCORE: 0/10 LOCATION: Bilateral legs. GREATER SAPHENOUS VEIN THIGH: PROXIMAL: Right Non-visualized Left Non-visualized MID: Right Non-visualized Left Non-visualized DISTAL: Right Non-visualized Left Non-visualized CALF: PROXIMAL: Right Non-visualized Left Non-visualized MID: Right Non-visualized Left Non-visualized DISTAL: Right Non-visualized Left Non-visualized FINDINGS: Greater saphenous veins could not be visualized in either lower extremity. Both small saphenous veins appear to be occluded. CONCLUSION: 1. Greater saphenous veins could not be visualized in either lower extremity. 2. Small saphenous veins appear to be occluded. Yovanny Polanco MD on June 09, 2017 at 15:18 Board Certified Radiologist. This report was verified electronically.
--- NOTE | 2017-06-09 15:46 | HHI.PR ---
Subjective Remarks 57-year-old male admitted secondary to chest pain. Cardiac enzymes were suggestive of ischemia as an etiology. Cardiac catheter performed today shows diffuse disease with focal deficits not treatable by coronary stent. Charted thoracic surgery has been consulted for discussion of CABG. Objective Vital Signs Date Time Temp Pulse Resp B/P (MAP) Pulse Ox O2 Delivery O2 Flow Rate FiO2 06/09/17 10:30 98 21 06/09/17 10:01 52 06/09/17 08:01 98 Nasal Cannula 2.00 06/09/17 08:01 98.6 66 18 125/79 (94) 98 06/09/17 08:00 56 06/09/17 07:01 52 06/09/17 06:05 49 06/09/17 05:00 52 06/09/17 04:00 51 06/09/17 03:30 97 Nasal Cannula 2.00 06/09/17 03:30 97.6 54 16 134/79 (97) 97 06/09/17 03:00 51 06/09/17 02:00 55 06/09/17 01:00 60 06/09/17 00:00 46 06/08/17 23:00 98.1 71 16 133/82 (99) 97 06/08/17 23:00 61 06/08/17 23:00 97 Nasal Cannula 2.00 06/08/17 22:00 62 06/08/17 21:00 50 06/08/17 20:15 99 Nasal Cannula 2.00 06/08/17 20:15 98.7 50 16 130/75 (93) 99 06/08/17 20:10 49 06/08/17 19:11 98.7 54 20 131/74 (93) 98 06/08/17 18:42 58 16 113/57 (75) 99 Nasal Cannula 2.00 06/08/17 18:38 98 Nasal Cannula 2.00 06/08/17 17:44 50 16 140/81 (100) 98 Nasal Cannula 2.00 06/08/17 16:07 60 16 109/66 (80) 97 Nasal Cannula 2.00 I/O 06/08/17 06/08/17 06/08/17 06/09/17 06/09/17 06/09/17 07:00 15:00 23:00 07:00 15:00 23:00 Intake Total 1215 ml 300 ml Output Total 1275 ml Balance -60 ml 300 ml Intake Oral 1080 ml IV Total 135 ml 300 ml Output Urine Total 1275 ml # Bowel Movements 0 Result Diagram: 06/09/175 06/09/17 0325 Objective Remarks GENERAL: NAD, A&Ox3 HEAD: Normocephalic. NECK: Supple, trachea midline. No lymphadenopathy. EYES: No scleral icterus. No injection or drainage. CARDIOVASCULAR: Regular rate and rhythm without murmurs, gallops, or rubs. RESPIRATORY: Breath sounds equal bilaterally. No accessory muscle use. GASTROINTESTINAL: Abdomen soft, non-tender, nondistended. MUSCULOSKELETAL: No cyanosis, or edema. SKIN: Warm and dry. NEURO: No focal neurological deficitis. A/P Problem List: (1) Coronary artery disease ICD Code: I25.10 - Atherosclerotic heart disease of [place] coronary artery without angina pectoris (2) Myocardial infarction ICD Code: I21.9 - Acute myocardial infarction, unspecified (3) ACS (acute coronary syndrome) ICD Code: I24.9 - Acute ischemic heart disease, unspecified Status: Acute Assessment and Plan 57-year-old male admitted secondary to myocardial infarction Myocardial infarction Chest pain CABG is likely needed as a treatment, post cath Positive for ACS Aspirin daily When necessary oxygen When necessary morphine for pain. When necessary nitroglycerin Follow on telemetry Cardiology following Cardiothoracic Surgery consulted today Hypertension Continue baseline treatment Follow blood pressures Adjust treatments as needed Hyperlipidemia Continue present treatment Follow as an outpatient DVT prophylaxis Heparin Rowdy Vasquez MD Jun 09, 2017 15:46
[2017-06-09] MEDS ORDERED: HALOPERIDOL LACTATE 5 MG/ML AMP IM PRN (16:00)
[2017-06-09] MEDS ORDERED: LORazepam 2 MG/ML VIAL IV PUSH PRN (16:00)
[2017-06-09 16:24] LABS: HEMOGLOBIN A1C 5.6 % (4.3-6.0)
--- NOTE | 2017-06-09 18:08 | ECHRPT ---
Indication: cp CONCLUSIONS The left ventricular systolic function is normal with an estimated ejection fraction in the range of 60-65%. Moderate concentric left ventricular hypertrophy. Doppler parameters are consistent with impaired left ventricular relaxtion (grade 1 diastolic dysfun ction). Trace mitral valve regurgitation. There is mild tricuspid valve regurgitation. BP: / HR: Rhythm: MEASUREMENTS (Male / Female) Normal Values Technical Quality:Good 2D ECHO LV Diastolic Diameter PLAX 4.7 cm 4.2 - 5.9 / 3.9 - 5.3 cm LV Systolic Diameter PLAX 3.4 cm IVS Diastolic Thickness 1.8 cm 0.6 - 1.0 / 0.6 - 0.9 cm LVPW Diastolic Thickness 1.3 cm 0.6 - 1.0 / 0.6 - 0.9 cm LV Relative Wall Thickness 0.7 RV Internal Dim ED PLAX 3.1 cm M-MODE Aortic Root Diameter MM 3.4 cm LA Systolic Diameter MM 4.3 cm LA Ao Ratio MM 1.3 AV Cusp Separation MM 2.1 cm DOPPLER Mitral E Point Velocity 60.7 cm/s Mitral A Point Velocity 76.0 cm/s Mitral E to A Ratio 0.8 LV E' Lateral Velocity 8.0 cm/s Mitral E to LV E' Lateral Ratio 7.6 LV E' Septal Velocity 8.7 cm/s Mitral E to LV E' Septal Ratio 7.0 TR Peak Velocity 244.0 cm/s TR Peak Gradient 23.8 mmHg Right Atrial Pressure 10.0 mmHg Pulmonary Artery Systolic Pressu 33.8 mmHg Right Ventricular Systolic Press 33.8 mmHg FINDINGS LEFT VENTRICLE Normal left ventricular size. The left ventricular systolic function is normal with an estimated ejection fraction in the range of 60-65%. Moderate concentric left ventricular hypertrophy. No regional wall motion abnormalities are present. Doppler parameters are consistent with impaired left ventricular relaxtion (grade 1 diastolic dysfun ction). RIGHT VENTRICLE Normal right ventricular size and systolic function. LEFT ATRIUM The left atrial size is mildly dilated. RIGHT ATRIUM The right atrial size is normal. ATRIAL SEPTUM Normal atrial septal thickness AORTA The aortic root and proximal ascending aorta are normal in size on limited imaging. MITRAL VALVE Structurally normal mitral valve. Trace mitral valve regurgitation. AORTIC VALVE Probable trileaflet aortic valve. No aortic valve stenosis or regurgitation. TRICUSPID VALVE Structurally normal tricuspid valve. There is mild tricuspid valve regurgitation. The estimated pulmonary arterial pressure is 33.8 mmHg. PULMONARY VALVE No pulmonary valve regurgitation or stenosis. VESSELS The inferior vena cava is normal in size. PERICARDIUM No pericardial effusion. Kentrell aPrr DO (Electronically Signed) Final Date:09 June 2017 18:07
[2017-06-09] MEDS ORDERED: HEPARIN SODIUM - IV 10,000 UNITS/10 ML VIAL IV PUSH PRN (20:45)
[2017-06-09] MEDS: SODIUM CHLORIDE 0.9% FLUSH 10 ML FLUSH IV FLUSH SCH (21:00)
[2017-06-09] MEDS: HEPARIN 25,000 UNITS-D5W 250 ML - PREMIX IV PRN (21:12)
[2017-06-09] MEDS: ATORVASTATIN 10 MG TAB PO SCH (21:12)
[2017-06-10] VITALS (29 sets, daily range): BP systolic 124–134; BP diastolic 86–89; PULSE 59–89; RESP 16–20; TEMP 98–98.5; O2SAT 94–98
[2017-06-10] MEDS: HEPARIN 25,000 UNITS-D5W 250 ML - PREMIX IV PRN (03:26)
[2017-06-10 05:36] LABS: AUTOMATED NEUTROPHIL # 4.4 TH/MM3 (1.8-7.7); BASOPHIL % 0.6 % (0.0-2.0); EOSINOPHIL # 0.1 TH/MM3 (0-0.4); EOSINOPHIL % 1.1 % (0.0-4.0); HEMATOCRIT 42.6 % (39.0-51.0); HEMOGLOBIN 14.7 GM/DL (13.0-17.0); LYMPH % 25.6 % (9.0-44.0); LYMPHOCYTE # 1.7 TH/MM3 (1.0-4.8); MEAN CELL VOLUME 87.7 FL (80.0-100.0); MEAN CORPUSCULAR HEMOGLOBIN 30.3 PG (27.0-34.0); MEAN CORPUSCULAR HGB CONC 34.6 % (32.0-36.0); MEAN PLATELET VOLUME 7.8 FL (7.0-11.0); MONO % 7.4 % (0.0-8.0); MONOCYTE # 0.5 TH/MM3 (0-0.9); NEUT % 65.3 % (16.0-70.0); PLATELET COUNT 172 TH/MM3 (150-450); RED BLOOD COUNT 4.87 MIL/MM3 (4.50-5.90); RED CELL DISTRIBUTION WIDTH 14.1 % (11.6-17.2); WHITE BLOOD COUNT 6.8 TH/MM3 (4.0-11.0)
[2017-06-10 06:04] LABS: BICARBONATE 28.1 MEQ/L (21.0-32.0); CALCIUM 8.8 MG/DL (8.5-10.1); CREATININE 1.16 MG/DL (0.60-1.30)
[2017-06-10] MEDS: HEPARIN SODIUM - IV 10,000 UNITS/10 ML VIAL IV PUSH PRN ×2 (06:47→20:10)
[2017-06-10] MEDS: FAMOTIDINE 20 MG TAB PO SCH ×2 (08:35→20:10)
[2017-06-10] MEDS: SODIUM CHLORIDE 0.9% FLUSH 10 ML FLUSH IV FLUSH SCH ×2 (08:36→20:12)
--- NOTE | 2017-06-10 15:46 | HHI.PR ---
Subjective Remarks No chest pain. Status post heart catheter shows need for CABG. No new complaints from patient. Objective Vital Signs Date Time Temp Pulse Resp B/P (MAP) Pulse Ox O2 Delivery O2 Flow Rate FiO2 06/10/17 15:08 97 Room Air 06/10/17 15:08 98.0 71 16 124/88 (100) 97 06/10/17 14:06 82 06/10/17 13:00 68 06/10/17 12:34 80 06/10/17 12:00 68 06/10/17 11:28 97 Room Air 06/10/17 11:08 98.4 73 16 126/89 (101) 97 06/10/17 11:00 79 06/10/17 10:02 84 06/10/17 09:00 76 06/10/17 08:24 95 21 06/10/17 08:02 72 06/10/17 07:38 98.5 67 16 131/89 (103) 95 06/10/17 07:29 Nasal Cannula 06/10/17 07:00 70 06/10/17 06:36 60 06/10/17 05:10 59 06/10/17 04:30 61 06/10/17 03:37 98.2 76 20 126/86 (99) 98 06/10/17 03:37 71 06/10/17 03:37 Room Air 06/10/17 02:44 68 06/10/17 01:00 66 06/10/17 00:00 64 06/09/17 23:40 Room Air 06/09/17 23:40 98.4 88 19 136/79 (98) 97 06/09/17 23:00 62 06/09/17 22:00 66 06/09/17 21:00 66 06/09/17 20:00 86 06/09/17 19:51 95 21 06/09/17 19:40 98.1 70 18 148/83 (104) 95 06/09/17 19:40 Room Air 06/09/17 19:30 72 06/09/17 18:01 64 06/09/17 17:00 64 06/09/17 16:01 92 I/O 06/09/17 06/09/17 06/09/17 06/10/17 06/10/17 06/10/17 07:00 15:00 23:00 07:00 15:00 23:00 Intake Total 1215 ml 300 ml 820 ml 480 ml Output Total 1275 ml 950 ml 1275 ml Balance -60 ml 300 ml -130 ml -795 ml Intake Oral 1080 ml 720 ml 480 ml IV Total 135 ml 300 ml 100 ml Output Urine Total 1275 ml 950 ml 1275 ml # Voids 3 # Bowel Movements 0 1 0 Result Diagram: 06/10/1745406/10/17454 Objective Remarks GENERAL: NAD, A&Ox3 HEAD: Normocephalic. NECK: Supple, trachea midline. No lymphadenopathy. EYES: No scleral icterus. No injection or drainage. CARDIOVASCULAR: Regular rate and rhythm without murmurs, gallops, or rubs. RESPIRATORY: Breath sounds equal bilaterally. No accessory muscle use. GASTROINTESTINAL: Abdomen soft, non-tender, nondistended. MUSCULOSKELETAL: No cyanosis, or edema. SKIN: Warm and dry. NEURO: No focal neurological deficitis. A/P Problem List: (1) Coronary artery disease ICD Code: I25.10 - Atherosclerotic heart disease of [place] coronary artery without angina pectoris (2) Myocardial infarction ICD Code: I21.9 - Acute myocardial infarction, unspecified (3) ACS (acute coronary syndrome) ICD Code: I24.9 - Acute ischemic heart disease, unspecified Status: Acute Assessment and Plan 57-year-old male admitted secondary to myocardial infarction. Pending CABG for tomorrow. Labs reviewed. No acute changes. Continue to monitor labs. Labs ordered for further monitoring. Patient is medically stable and clear for surgery tomorrow. Myocardial infarction Chest pain CABG is likely needed as a treatment, post cath Positive for ACS Aspirin daily When necessary oxygen When necessary morphine for pain. When necessary nitroglycerin Follow on telemetry Cardiology following Cardiothoracic Surgery consulted today Hypertension Continue baseline treatment Follow blood pressures Adjust treatments as needed Hyperlipidemia Continue present treatment Follow as an outpatient DVT prophylaxis Heparin Rowdy Vasquez MD Jun 10, 2017 15:46
[2017-06-10] MEDS: ATORVASTATIN 10 MG TAB PO SCH (20:10)
[2017-06-11] VITALS (14 sets, daily range): BP systolic 99–128; BP diastolic 58–89; PULSE 62–86; RESP 12–20; TEMP 98.1–98.6; O2SAT 93–99
[2017-06-11 05:35] LABS: AUTOMATED NEUTROPHIL # 3.7 TH/MM3 (1.8-7.7); BASOPHIL % 0.8 % (0.0-2.0); EOSINOPHIL # 0.1 TH/MM3 (0-0.4); EOSINOPHIL % 1.4 % (0.0-4.0); LYMPH % 27.8 % (9.0-44.0); LYMPHOCYTE # 1.7 TH/MM3 (1.0-4.8); MEAN CELL VOLUME 87.8 FL (80.0-100.0); MEAN CORPUSCULAR HEMOGLOBIN 30.6 PG (27.0-34.0); MEAN CORPUSCULAR HGB CONC 34.8 % (32.0-36.0); MEAN PLATELET VOLUME 7.7 FL (7.0-11.0); MONO % 8.3 % (0.0-8.0); MONOCYTE # 0.5 TH/MM3 (0-0.9); NEUT % 61.7 % (16.0-70.0); PLATELET COUNT 167 TH/MM3 (150-450); RED BLOOD COUNT 4.89 MIL/MM3 (4.50-5.90); RED CELL DISTRIBUTION WIDTH 13.8 % (11.6-17.2)
[2017-06-11 05:59] LABS: ALBUMIN 3.7 GM/DL (3.4-5.0); ALT (GPT) 32 U/L (12-78); AST (GOT) 45 U/L (15-37); BICARBONATE 26.4 MEQ/L (21.0-32.0); BLOOD UREA NITROGEN 13 MG/DL (7-18); CHLORIDE 107 MEQ/L (98-107); CREATININE 0.99 MG/DL (0.60-1.30); GLOMERULAR FILTRATION RATE 78 ML/MIN (>89); GLUCOSE,RANDOM 96 MG/DL (74-106); SODIUM (NA) 141 MEQ/L (136-145)
[2017-06-11 06:01] LABS: ALKALINE PHOSPHATASE 51 U/L (45-117); TOTAL BILIRUBIN ADULT 0.9 MG/DL (0.2-1.0); TOTAL PROTEIN 7.5 GM/DL (6.4-8.2)
[2017-06-11] MEDS ORDERED: methylPREDNISolone SOD SUCC 125 MG/2 ML VIAL ONE (06:35)
[2017-06-11] MEDS ORDERED: ceFAZolin 2 GM PREMIX 50 ML ONE (06:35)
[2017-06-11] MEDS ORDERED: HEPARIN SODIUM - SQ 10,000 UNITS/ML VIAL ONE (06:35)
[2017-06-11] MEDS ORDERED: VANCOMYCIN HCL 1000 MG VIAL ONE (06:35)
[2017-06-11] MEDS ORDERED: CARDIOPLEGIC IRR 2,000 ML ONE (07:05)
[2017-06-11] MEDS ORDERED: HEPARIN SODIUM - IV 10,000 UNITS/10 ML VIAL ONE (07:06)
[2017-06-11] MEDS ORDERED: POTASSIUM CHLORIDE 40 MEQ/20 ML VIAL ONE (07:06)
[2017-06-11] MEDS ORDERED: ALBUMIN 25% INJ 50 ML IV ONE (07:06)
[2017-06-11] MEDS ORDERED: MANNITOL INJ 100 ML ONE (07:07)
[2017-06-11] MEDS ORDERED: niCARdipine 25 MG/NS 250 ML Vial2Bag or IV room IV PRN ×2 (09:00)
[2017-06-11] MEDS: PAPAVERINE INJ 60 MG, NITROGLYCERIN INJ 100 MCG, DILTIAZEM INJ 100 MG in SODIUM CHLORID... IRRIGATION SCH ×2 (09:10→13:09)
[2017-06-11] MEDS ORDERED: ceFAZolin INJ 1,000 MG VIAL ONE (11:13)
[2017-06-11] MEDS ORDERED: [UNRECOGNIZED DRUG - OTHER] IRRIGATION ONE ×4 (11:45)
[2017-06-11] MEDS ORDERED: DILT IRRIGATION ONE ×4 (11:45)
[2017-06-11] MEDS ORDERED: MAGNESIUM SULFATE 1 GM/2 ML VIAL IV ONE (12:00)
[2017-06-11] MEDS ORDERED: PROTAMINE SULFATE 250 MG/25 ML VIAL IV ONE (12:00)
[2017-06-11] MEDS ORDERED: PROPOFOL 500 MG/50 ML BTL IV ONE (12:00)
[2017-06-11] MEDS ORDERED: PHENYLEPH/NS 1000 MCG/10 ML SYR IV ONE (12:00)
[2017-06-11] MEDS ORDERED: PHENYLEPHRINE HCL 10 MG/ML VIAL IV ONE (12:00)
[2017-06-11] MEDS ORDERED: ePHEDrine/NS 25 MG/5 ML SYRINGE IV ONE (12:00)
[2017-06-11] MEDS ORDERED: SODIUM CHLOR 0.9% 1000 ML INJ 1,000 ML IV ONE (12:00)
[2017-06-11] MEDS ORDERED: EPINEPHrine HCL (1:1000) 30 MG/30 ML VIAL IV ONE (12:00)
[2017-06-11] MEDS ORDERED: VECURONIUM BROMIDE 10 MG VIAL IV ONE (12:00)
[2017-06-11] MEDS ORDERED: EPINEPHrine HCL (1:1000) 1 MG/ML VIAL IV ONE (12:00)
[2017-06-11] MEDS ORDERED: HEPARIN SODIUM - SQ 10,000 UNITS/ML VIAL SQ ONE (12:00)
[2017-06-11] MEDS ORDERED: DEXMEDETOMIDINE HCL 200 MCG/2 ML VIAL IV ONE (12:00)
[2017-06-11] MEDS ORDERED: SODIUM BICARBONATE 8.4% INJ 50 MEQ/50 ML SYR IV ONE (12:00)
[2017-06-11] MEDS ORDERED: AMINOCAPROIC ACID INJ 250 MG/ML 20 ML VIAL IV ONE (12:00)
[2017-06-11] MEDS ORDERED: ARTIFICIAL TEARS OPTH OINT 3.5 APPLIC/3.5 GM TUBO EACH EYE ONE (12:00)
[2017-06-11] MEDS ORDERED: CALCIUM CHLORIDE 10% SOLN 1 GRAM/10 ML SYR IV ONE (12:00)
[2017-06-11] MEDS ORDERED: SODIUM CHLORIDE 0.9% INJ 200 ML IV ONE (12:00)
[2017-06-11] MEDS ORDERED: VECURONIUM BROMIDE 20 MG VIAL ONE (13:56)
[2017-06-11] MEDS ORDERED: LACTATED RINGER'S 1000 ML INJ 500 ML IV PRN (14:09)
[2017-06-11] MEDS ORDERED: SODIUM CHLORIDE 0.9% FLUSH 10 ML FLUSH IV FLUSH PRN (14:15)
[2017-06-11] MEDS ORDERED: hydrALAZINE HCL 20 MG/ML VIAL IV PUSH PRN (14:15)
[2017-06-11] MEDS ORDERED: RESP: RACEPINEPHRINE 2.25% 0.5 ML NEB NEB PRN (14:15)
[2017-06-11] MEDS ORDERED: ACETAMINOPHEN 650 MG SUPP RECTAL PRN (14:15)
[2017-06-11] MEDS ORDERED: SODIUM BICARBONATE 8.4% SOLN 50 MEQ/50 ML VIAL IV PUSH PRN ×2 (14:15)
[2017-06-11] MEDS ORDERED: MAGNESIUM SULFATE INJ 2 GM in SODIUM CHLORIDE 0.9% INJ 100 ML IV PRN ×4 (14:15)
[2017-06-11] MEDS ORDERED: METOPROLOL TARTRATE 5 MG/5 ML VIAL IV PUSH PRN (14:15)
[2017-06-11] MEDS ORDERED: CLEVIDIPINE INJ 50 ML IV PRN (14:15)
[2017-06-11] MEDS ORDERED: POTASSIUM CHLOR 20 MEQ PREMIX 100 ML IV PRN ×3 (14:15)
[2017-06-11] MEDS ORDERED: INSULIN REGULAR (IV INFUSION) 100 UNITS in SODIUM CHLORIDE 0.9% INJ 99 ML IV PRN (14:15)
[2017-06-11] MEDS ORDERED: Post-op Orders (for Pharmacy) OTHER ONE (14:15)
[2017-06-11] MEDS ORDERED: CALCIUM CHLORIDE INJ 1 GM in SODIUM CHLORIDE 0.9% INJ 100 ML IV PRN (14:15)
[2017-06-11] MEDS ORDERED: POTASSIUM CHLORIDE 20 MEQ CONTROLLED RELEASE TAB PO PRN ×2 (14:15)
[2017-06-11] MEDS ORDERED: CALCIUM CHLORIDE 10% 1 GRAM/10 ML VIAL IV PUSH PRN (14:15)
[2017-06-11] MEDS ORDERED: DEXMEDETOMIDINE INJ 200 MCG in SODIUM CHLORIDE 0.9% INJ 50 ML IV PRN (14:15)
[2017-06-11] MEDS ORDERED: RESP: ALBUTEROL 2.5 MG/IPRATROPIUM 0.5 MG NEB (PRN) NEB (14:15)
[2017-06-11] MEDS ORDERED: DEXTROSE 50% IN WATER 50 ML VIAL(D50) IV PUSH PRN (14:15)
[2017-06-11] MEDS ORDERED: ALBUMIN 5% INJ 250 ML IV PRN (14:15)
[2017-06-11] MEDS ORDERED: ACETAMINOPHEN 325 MG TAB PO PRN (14:15)
--- NOTE | 2017-06-11 14:29 | PD.OP ---
cc: Julieth Cheney MD; Solomon Roberts MD Operative Report Date of Surgery: Jun 11, 2017 Preoperative Diagnosis: (1) Coronary artery disease (2) NSTEMI (non-ST elevated myocardial infarction) Postoperative Diagnosis: same Procedure: CABG x 3 FERNANDEZ to LAD - good DULCE to PDA - poor Left Radial artery to OM - good Anesthesia: Dr. Dupont Surgeon: Julieth Cheney Roustabout Head(s): CONSUELO Parker Operation and Findings: The possibilities of reaction to medication, pulmonary aspiration, perforation of viscus, bleeding, recurrent infection, the need for additional procedures, failure to diagnose a condition, and creating a complication requiring transfusion or operation were discussed with the patient. The patient concurred with the proposed plan, giving informed consent. The patient has no usable saphenous vein secondary to vein stripping in the past. The site of surgery properly noted/marked. The patient was taken to Operating Room, identified as @ NAME@ and the procedure verified as CABG, Left radial artery procurement. A Time Out was held and the above information confirmed. Standard monitoring lines and Barnett catheter were placed. General anesthesia was induced. The patient was prepped and draped in a sterile fashion. A median sternotomy was performed and electrocautery was used to obtain hemostasis. The left internal mammary artery was procured as a pedicle from the 7th rib to the 1st rib in the usual manner. Simultaneously, left radial artery was procured from the left arm using an open technique with a longitudinal incision from the wrist to just distal to the antecubital fossa. The artery was prepared for anastomosis and the arm wound was irrigated and closed in 2 layers. The right internal mammary artery was procured as a pedicle from the 7th rib to the 1st rib following radial artery harvest and tucking the left arm. The pericardium was opened and a pericardial sling was created using interrupted 0 silk sutures. The patient was heparinized for cardiopulmonary bypass and the distal mammary pedicles were instrumented for anastomosis. The heart was instrumented for cardiopulmonary bypass in the usual manner. Antegrade blood cardioplegia was employed. The patient was placed on cardiopulmonary bypass. An aortic cross- clamp was applied and the heart was arrested using cold blood cardioplegia. Antegrade cardioplegia was administered after he each anastomosis. After adequate arrest, the distal right coronary circulation was investigated and the OM artery was opened with a [place] blade and found to be a 1.5 millimeter good target. Radial artery was approximated to the OM artery using a running 7 0 Prolene suture. The graft was measured for length and orientation and suspended from the pericardium. The distal LAD was opened with a [place] blade and found to be a 1.5 millimeter good target. The left internal mammary artery was approximated to the LAD using a running 7 0 Prolene suture. The pedicle was attached to the epicardium using interrupted 5 0 silk suture. The PDA artery was then opened with a [place] blade and found to be a 1 millimeter poor target with diffuse disease. Right internal mammary artery was approximated to the PDA artery using a running 7 0 Prolene suture. The pedicle was attached to the epicardium using interrupted 5 0 silk suture. The patient was systemically rewarmed and received a hotshot dose of warm blood cardioplegia. The aorta was vented and the proximal anastomosis to the OM graft was accomplished using a running 6 0 Prolene suture after creating an aortotomy was a 4 millimeter punch. The cross-clamp was removed and all proximal and distal anastomoses were examined for hemostasis. The patient was weaned from cardiopulmonary bypass. Protamine was given. There was no adverse reaction. Decannulation was carried out without incident. Wound was checked for hemostasis which was obtained using electrocautery. A 36 [place] mediastinal and 2-32 [place] bilateral pleural chest tubes were placed and secured to the skin with 0 silk suture. The sternum was closed with stainless steel wire. The fascia was closed with 1. PDS. The subcutaneous tissue was closed using a running 2-0 Vicryl suture. The skin was closed with 4-0 Monocryl. Sterile dressings were placed. At the end of the operation, all sponge, instruments, and needle counts were correct. The patient was transferred to the CVICU in stable condition. Findings: Diffuse CAD with distal disease along the PDA.. No SV conduit XC: 56 min CPB: 67 min Drains: mediastinal x 1 pleural x 2 Complications: none Disposition: to CVICU in stable condition Julieth Cheney MD Jun 11, 2017 14:29
[2017-06-11] MEDS ORDERED: RESP: ALBUTEROL 2.5 MG/3 ML NEB (PRN) ONE (14:49)
[2017-06-11] MEDS ORDERED: MIDAZOLAM HCL 2 MG/2 ML VIAL ONE (15:19)
[2017-06-11] MEDS ORDERED: fentaNYL CITRATE 250 MCG/5 ML AMP ONE ×2 (15:20)
--- NOTE | 2017-06-11 15:46 | RADRPT ---
EXAM DATE/TIME: 06/11/2017 15:20 [facility] COMPARISON: CHEST SINGLE AP, June 08, 2017, 14:09. INDICATIONS : Status post CABG. MEDICAL HISTORY : None. SURGICAL HISTORY : CABG. ENCOUNTER: Subsequent ACUITY: 1 week PAIN SCORE: Non-responsive. LOCATION: Bilateral chest FINDINGS: Support apparatus in good position. Bilateral chest examined without pneumothorax. Lungs are clear. mediastinal contours appropriate. CONCLUSION: Satisfactory postoperative chest. Support apparatus in good position. Izaiah Man MD FACR on June 11, 2017 at 15:44 Board Certified Radiologist. This report was verified electronically.
[2017-06-11] MEDS: RESP: ALBUTEROL 2.5 MG/IPRATROPIUM 0.5 MG NEB (SCH) NEB ×2 (15:57→20:48)
[2017-06-11] MEDS: LACTATED RINGER'S 1000 ML IV PRN ×2 (16:25→18:36)
[2017-06-11] MEDS: ACETAMINOPHEN 1000 MG/100 ML 100 ML IV SCH ×2 (16:26→22:45)
[2017-06-11] MEDS: KETOROLAC TROMETHAMINE 30 MG/ML (IVP) VIAL IV PUSH PRN (18:21)
[2017-06-11] MEDS: ONDANSETRON HCL 4 MG/2 ML VIAL IV PUSH PRN (19:30)
[2017-06-11] MEDS: ATORVASTATIN 10 MG TAB PO SCH (21:00)
[2017-06-11] MEDS: SODIUM CHLORIDE 0.9% FLUSH 10 ML FLUSH IV FLUSH SCH (21:00)
[2017-06-11] MEDS: AMIODARONE 200 MG TAB PO SCH (22:00)
[2017-06-12] VITALS (20 sets, daily range): BP systolic 95–143; BP diastolic 50–90; PULSE 76–96; RESP 16–24; TEMP 98–99.1; O2SAT 93–98
[2017-06-12] MEDS: RESP: ALBUTEROL 2.5 MG/IPRATROPIUM 0.5 MG NEB (SCH) NEB ×3 (03:34→20:39)
[2017-06-12] MEDS: ACETAMINOPHEN 1000 MG/100 ML 100 ML IV SCH ×2 (04:24→10:50)
[2017-06-12] MEDS: KETOROLAC TROMETHAMINE 30 MG/ML (IVP) VIAL IV PUSH PRN ×3 (04:25→21:47)
[2017-06-12 04:40] LABS: HEMATOCRIT 37.8 % (39.0-51.0); HEMOGLOBIN 12.9 GM/DL (13.0-17.0); MEAN CELL VOLUME 88.3 FL (80.0-100.0); MEAN CORPUSCULAR HEMOGLOBIN 30.2 PG (27.0-34.0); MEAN CORPUSCULAR HGB CONC 34.2 % (32.0-36.0); PLATELET COUNT 142 TH/MM3 (150-450); RED BLOOD COUNT 4.29 MIL/MM3 (4.50-5.90); RED CELL DISTRIBUTION WIDTH 14.2 % (11.6-17.2); WHITE BLOOD COUNT 9.2 TH/MM3 (4.0-11.0)
--- NOTE | 2017-06-12 04:54 | RADRPT ---
EXAM DATE/TIME: 06/12/2017 03:52 [facility] COMPARISON: CHEST SINGLE AP, June 11, 2017, 15:20. INDICATIONS : Shortness of breath, possible pulmonary disease. MEDICAL HISTORY : Hypertension. Gastroesophageal reflux disease. Deep venous thrombosis. SURGICAL HISTORY : CABG. Tonsillectomy. ENCOUNTER: Subsequent ACUITY: 4 - 6 days PAIN SCORE: Non-responsive. LOCATION: Bilateral chest FINDINGS: Patient has been extubated with removal of NGT. Stable right IJ central line, mediastinal drain and b ilateral chest tubes. No significant pneumothorax. Mild airspace disease in the lower lung zones. Car diomediastinal contours are stable. Remainder of the exam is unchanged. CONCLUSION: 1. Minimal stable bibasilar airspace disease status post extubation. 2. No significant pneumothorax with bilateral chest tubes and mediastinal drain in place. Marcello Baker MD on June 12, 2017 at 4:52 Board Certified Radiologist. This report was verified electronically.
[2017-06-12 05:09] LABS: BICARBONATE 26.3 MEQ/L (21.0-32.0); CALCIUM 8.1 MG/DL (8.5-10.1); CREATININE 0.93 MG/DL (0.60-1.30); MAGNESIUM 2.4 MG/DL (1.5-2.5)
[2017-06-12] MEDS: PANTOPRAZOLE SOD 40 MG DELAYED RELEASE TAB PO SCH (06:00)
[2017-06-12] MEDS: AMIODARONE 200 MG TAB PO SCH ×3 (06:00→21:47)
[2017-06-12] MEDS: oxyCODONE/ACETAMINOPHEN 5 MG/325 MG TAB PO PRN ×4 (06:19→21:47)
[2017-06-12] MEDS ORDERED: BISACODYL 10 MG SUPP RECTAL PRN (07:30)
[2017-06-12] MEDS ORDERED: GLUCAGON 1 MG/ML VIAL OTHER PRN (07:30)
[2017-06-12] MEDS ORDERED: DEXTROSE 50% IN WATER 50 ML VIAL(D50) IV PUSH PRN (07:30)
--- NOTE | 2017-06-12 07:31 | PD.CAR.PN ---
CVT Progress Note CVT: POD #: 1 Subjective/Hospital Course: sts data discussed with pt / full consult to follow RISK SCORES About the STS Risk Calculator Procedure: CAB Only Risk of Mortality: 0.395% Morbidity or Mortality: 6.806% Long Length of Stay: 1.815% Short Length of Stay: 70.537% Permanent Stroke: 0.469% Prolonged Ventilation: 4.325% DSW Infection: 0.243% Renal Failure: 1.107% Reoperation: 3.081% 06/12/17 Doing well today, c/o left arm and hand swelling Objective: Vital Signs Date Time Temp Pulse Resp B/P (MAP) Pulse Ox O2 Delivery O2 Flow Rate FiO2 06/12/17 06:00 93 Nasal Cannula 6.00 06/12/17 04:00 80 06/12/17 04:00 99.1 81 16 102/50 (67) 95 112/56 (74) 06/12/17 04:00 95 Nasal Cannula 4.00 06/12/17 01:00 93 Nasal Cannula 4.00 06/12/17 00:00 86 06/12/17 00:00 98.7 86 18 101/68 (79) 95 118/73 (88) 06/11/17 22:00 94 Nasal Cannula 6.00 06/11/17 21:00 94 Simple Mask 6.00 06/11/17 20:52 94 Simple Mask 8.00 06/11/17 20:00 98.6 85 18 99/64 (76) 96 102/59 (73) 06/11/17 20:00 86 06/11/17 20:00 96 Simple Mask 8.00 06/11/17 19:00 96 Partial Non-Rebreather 06/11/17 18:00 82 114/61 06/11/17 17:41 93 Non-Rebreather 15.00 06/11/17 17:41 50 06/11/17 17:41 93 Non-Rebreather 15 06/11/17 16:33 93 50 06/11/17 16:32 50 06/11/17 16:20 71 84/42 06/11/17 15:51 99 50 06/11/17 15:26 69 116/47 06/11/17 15:00 99 Mechanical Ventilator 50 06/11/17 15:00 74 06/11/17 15:00 94 70 06/11/17 15:00 50 06/11/17 15:00 98.3 74 12 104/58 (73) 99 107/58 (74) 06/11/17 15:00 74 Labs: Laboratory Tests Test 06/12/17 04:15 White Blood Count 9.2 TH/MM3 (4.0-11.0) Red Blood Count 4.29 MIL/MM3 (4.50-5.90) Hemoglobin 12.9 GM/DL (13.0-17.0) Hematocrit 37.8 % (39.0-51.0) Mean Corpuscular Volume 88.3 FL (80.0-100.0) Mean Corpuscular Hemoglobin 30.2 PG (27.0-34.0) Mean Corpuscular Hemoglobin Concent 34.2 % (32.0-36.0) Red Cell Distribution Width 14.2 % (11.6-17.2) Platelet Count 142 TH/MM3 (150-450) Mean Platelet Volume 8.0 FL (7.0-11.0) Blood Urea Nitrogen 17 MG/DL (7-18) Creatinine 0.93 MG/DL (0.60-1.30) Random Glucose 112 MG/DL (74-106) Calcium Level 8.1 MG/DL (8.5-10.1) Magnesium Level 2.4 MG/DL (1.5-2.5) Sodium Level 144 MEQ/L (136-145) Potassium Level 4.1 MEQ/L (3.5-5.1) Chloride Level 109 MEQ/L (98-107) Carbon Dioxide Level 26.3 MEQ/L (21.0-32.0) Anion Gap 9 MEQ/L (5-15) Estimat Glomerular Filtration Rate 84 ML/MIN (>89) Result Diagram: 06/12/17 0415 06/12/17 0415 Imaging: Last 24 hours Impressions Chest X-Ray 06/12/17 0500 Signed Impressions: Service Date/Time: June 03:52 - CONCLUSION: 1. Minimal stable bibasilar airspace disease status post extubation. 2. No significant pneumothorax with bilateral chest tubes and mediastinal drain in place. Marcello Baker MD Cardiovascular: RRR Telemetry: NSR Pulmonary: CTA GI/: NABS, NT Incision: dry and intact CT: 290ml since OR Plan: Keep left arm elevated Continue chest tubes Transfer to stepdown Remove turner Ambulate x 6, up to chair Advance diet Start low-dose amlodipine for radial graft Julieth Cheney MD Jun 12, 2017 07:31
[2017-06-12] MEDS ORDERED: PILL SPLITTER OTHER PRN (08:00)
[2017-06-12] MEDS ORDERED: POTASSIUM CHLORIDE 20 MEQ CONTROLLED RELEASE TAB PO ONE (08:15)
[2017-06-12] MEDS ORDERED: FUROSEMIDE 40 MG/4 ML VIAL IV PUSH ONE (08:15)
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
[2017-06-12] MEDS: amLODIPine BESYLATE 5 MG TAB PO SCH (09:35)
[2017-06-12] MEDS: MAGNESIUM HYDROXIDE SUSP 30 ML CUP PO SCH (09:36)
[2017-06-12] MEDS: ASPIRIN 81 MG CHEW TAB PO SCH (09:36)
[2017-06-12] MEDS: MULTIVITAMINS/MINERALS THERAPEUTIC TAB PO SCH (09:36)
[2017-06-12] MEDS: SODIUM CHLORIDE 0.9% FLUSH 10 ML FLUSH IV FLUSH SCH ×2 (09:46→21:47)
[2017-06-12] MEDS: INSULIN ASPART SUPPLEMENTAL SCALE SQ SCH ×4 (10:00→21:39)
--- NOTE | 2017-06-12 10:18 | RSPPFT ---
DATE OF PROCEDURE: 06/09/17 COMMENTS: Spirometry shows FVC of 5.0 at 106% of predicted, FEV1 of 3.6 at 96%, FEV1/FVC ratio is normal. Flow is normal at FEF 25, FEF 50, FEF 75 and FEF 25-75. Flow volume loops indicates a normal pattern. IMPRESSION: 1. Normal spirometry. 2. Post-bronchodilator study was not done.
--- NOTE | 2017-06-12 13:47 | HHI.FF ---
Face to Face Verification Diagnosis: (1) ACS (acute coronary syndrome) (2) Coronary artery disease (3) Myocardial infarction (4) NSTEMI (non-ST elevated myocardial infarction) (5) S/P CABG x 3 Home Health Nursing Order: Signs/symptoms of disease process Medication education-adverse effect Wound care and dressing changes Nursing assessment with vital signs Instructions: Heart and Vascular Surgery patients *Special attention to sternal dressing Mandatory frequency Assess and evaluation, 4 days in a row The next week 3X week 2 times a week for 4 weeks 1 time a week for 5 weeks Schedule Heart and Vascular patients for full 60 day certification period Initial visit Review Open Heart Surgery Discharge Instructions (Sternal precautions, Activity, Elastic hose, Incision care, Driving, Incentive spirometry, Smoking, [place], Work and other) Need Betadine to paint incision Medication reconciliation Importance of follow up care/ check on appointments Make calendar record temperature daily When to call [facility] nurse, review instructions, phone list Incentive Spirometry, demonstration Visit 1- Begin discharge instruction for patient family and/ or caregiver using teach back method- Signs and symptoms of infection Disease characteristics Medicines and side effects Foods and nutrition/ appetite Infection control/ hand washing/ hygiene Visit 2- Continue teaching Discharge instructions- include additional information on smoking cessation , sternal dressing (sternal vac) Visit 3- Continue teaching- Cough and deep breathing, incision monitoring. Choose my plate Visit 4- Continue teaching- Discuss limitations Discuss how they are feeling Discuss progress toward goals Remaining visits- continue teaching and monitoring PREVENA Single Use Negative Wound Therapy System Caregiver Instruction Sheet 1. A Prevena dressing system was applied to the chest incision during surgery , to promote wound healing. It works via a suction device (negative pressure wound therapy) to remove low to moderate levels of exudate (drainage) and infectious materials. We recommend that the device stay in place for up to seven days, from day of surgery. 2. Day of Surgery____/ Day of Removal ___/10/29 3. The dressing should only be removed by a health career services director. Please arrange removal of device to coincide with Home Health visit and or with Nursing staff at Rehab 4. If skin reddening or irritation of skin occurs, or excessive drainage, please notify the Cardiovascular Surgeons office at [phone]. 5. Light showering is permissible; however the pump should be disconnected and placed in safe location, where it will not get wet. The dressing should not be exposed to direct spray or submerged in water. No bath tub / shower only. Ensure the end of the tubing attached to the dressing is facing down so that water does not enter the top of the tube. 6. To remove Prevena dressing: press purple button to turn off device / remove the suction. Then disconnect the tubing from the pump. The fixation strips should be stretched away from the skin and the dressing lifted at one corner and peeled back until it has been fully removed. 7. After removal, it is ok to shower daily using liquid dial soap and clean wash cloth, rinse and pat dry, and leave incision open to air dry. For any concerns regarding Prevena dressing, and or wounds, please contact Natasha Garcia, patient navigator at [phone] or notify the Cardiovascular Surgeons office at [phone]. Incentive spirometry Q1 hr x 10, while awake, also use acapella device hourly whole awake Sternal Breast Bone Precautions: NO pushing or pulling, ( pt must use sternal pillow to support chest with all activities and with coughing ( takes up to 3 months breast bone to heal ) Daily incision care: ok to shower daily, no tub bath. Wash all incisions with liquid dial soap, clean wash cloth to each site, rinse and pat dry. Observe for any signs of infection, such as drainage which is dark yellow, diaz, green or foul smelling. Immediately report to the surgeon any drainage from the chest incision, or legs, and for any abnormal drainage from the chest tube sites. Notify surgeon if any temp >101.5 degrees F. When specialty dressing removed/ or if you do not have one, continue to shower daily as above, then rinse and pat incision dry and paint with betadine daily x 5 days. Allow steri strips to fall off if you have any. Avoid lotions, creams, salves, oils, etc. for the first month Please see attached forms for additional instructions regarding post Open Heart specialty wound vacuum dressings. JOHANNY or Prevena , Dressing to be removed by Nursing staff on ___06/18/17____ For Dr. Cheney patients , please obtain CBC, BMP, PA & Lat CXR in 2 weeks, results to Dr. Cheney ( prescription will be given) ( ) (Tele: [phone]) , F/U appointment: as per OR instructions: PCP in 2 weeks, CV surgeon 2 weeks, [employer] 3-4 weeks For any questions regarding incisions/ dressing / meds / post op care or above Symptoms, Friday 8am-5pm Heart & Vascular Surgery Office ( Dr. Gerber & Dr. Cheney), After Hours / Nights (5pm -8am) Weekends and Holidays Please call [facility] ([facility]) Charge Nurse I have seen patient Shabbir Fountain on 06/12/17. My clinical findings support the need for the requested home health care services because: Deconditioned w/ increased weakness I certify that my clinical findings support that this patient is homebound because: Post-op weakness Estela Stewart Jun 12, 2017 13:47
[2017-06-12] MEDS: DOCUSATE SODIUM 100 MG CAP PO SCH (21:47)
[2017-06-12] MEDS: ATORVASTATIN 10 MG TAB PO SCH (21:47)
[2017-06-12] MEDS: SENNOSIDES 8.6 MG TAB PO SCH (21:47)
[2017-06-13] VITALS (22 sets, daily range): BP systolic 101–144; BP diastolic 65–88; PULSE 76–96; RESP 14–18; TEMP 97.7–100.2; O2SAT 91–98
[2017-06-13] MEDS: INSULIN ASPART SUPPLEMENTAL SCALE SQ SCH ×5 (02:00→21:00)
[2017-06-13] MEDS: oxyCODONE/ACETAMINOPHEN 5 MG/325 MG TAB PO PRN ×2 (02:56→20:22)
[2017-06-13] MEDS: RESP: ALBUTEROL 2.5 MG/IPRATROPIUM 0.5 MG NEB (SCH) NEB ×4 (03:52→20:15)
[2017-06-13 04:58] LABS: BASOPHIL % 0.3 % (0.0-2.0); EOSINOPHIL % 0.3 % (0.0-4.0); HEMATOCRIT 34.7 % (39.0-51.0); HEMOGLOBIN 11.7 GM/DL (13.0-17.0); LYMPH % 14.2 % (9.0-44.0); LYMPHOCYTE # 1.1 TH/MM3 (1.0-4.8); MEAN CELL VOLUME 89.4 FL (80.0-100.0); MEAN CORPUSCULAR HEMOGLOBIN 30.2 PG (27.0-34.0); MEAN CORPUSCULAR HGB CONC 33.8 % (32.0-36.0); MEAN PLATELET VOLUME 8.3 FL (7.0-11.0); MONO % 8.1 % (0.0-8.0); MONOCYTE # 0.6 TH/MM3 (0-0.9); NEUT % 77.1 % (16.0-70.0); PLATELET COUNT 129 TH/MM3 (150-450); RED BLOOD COUNT 3.88 MIL/MM3 (4.50-5.90); RED CELL DISTRIBUTION WIDTH 13.9 % (11.6-17.2); WHITE BLOOD COUNT 7.8 TH/MM3 (4.0-11.0)
[2017-06-13 05:16] LABS: BICARBONATE 29.5 MEQ/L (21.0-32.0); CALCIUM 8.2 MG/DL (8.5-10.1); CREATININE 0.9 MG/DL (0.60-1.30)
[2017-06-13] MEDS: PANTOPRAZOLE SOD 40 MG DELAYED RELEASE TAB PO SCH (05:45)
[2017-06-13] MEDS: AMIODARONE 200 MG TAB PO SCH ×2 (05:45→20:22)
[2017-06-13] MEDS: KETOROLAC TROMETHAMINE 30 MG/ML (IVP) VIAL IV PUSH PRN (05:46)
[2017-06-13] MEDS: ONDANSETRON HCL 4 MG/2 ML VIAL IV PUSH PRN ×2 (07:59→12:47)
[2017-06-13] MEDS: MULTIVITAMINS/MINERALS THERAPEUTIC TAB PO SCH (08:38)
[2017-06-13] MEDS: SODIUM CHLORIDE 0.9% FLUSH 10 ML FLUSH IV FLUSH SCH ×2 (08:38→21:00)
[2017-06-13] MEDS: ASPIRIN 81 MG CHEW TAB PO SCH (08:38)
[2017-06-13] MEDS: POLYETHYLENE GLYCOL 17 GM PKG PO SCH (08:38)
[2017-06-13] MEDS: DOCUSATE SODIUM 100 MG CAP PO SCH ×2 (08:38→21:27)
[2017-06-13] MEDS: amLODIPine BESYLATE 5 MG TAB PO SCH (08:38)
[2017-06-13] MEDS: MAGNESIUM HYDROXIDE SUSP 30 ML CUP PO SCH (08:38)
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
[2017-06-13] MEDS ORDERED: MAGNESIUM SULFATE 1 GM PREMIX 100 ML IV ONE (10:45)
[2017-06-13] MEDS: FUROSEMIDE 40 MG/4 ML VIAL IV PUSH SCH (10:56)
[2017-06-13] MEDS: METOPROLOL TARTRATE 25 MG TAB PO SCH ×2 (10:57→21:26)
[2017-06-13] MEDS: POTASSIUM CHLORIDE 20 MEQ CONTROLLED RELEASE TAB PO SCH (10:58)
[2017-06-13] MEDS ORDERED: POTASSIUM CHLORIDE 10 MEQ CONTROLLED RELEASE TAB PO ONE (11:45)
--- NOTE | 2017-06-13 11:50 | EKG ---
Date Performed: 06/12/2017 Time Performed: 21:21:02 PTAGE: 57 years EKG: Sinus rhythm Normal ECG PREVIOUS TRACING : 06/09/2017 07.55 When compared to the prior EKG, the nonspecific ST-T wave c hanges have resolved. DOCTOR: Yuko Palomino Interpretating Date/Time 06/13/2017 11:50:17
[2017-06-13] MEDS: METOCLOPRAMIDE HCL 10 MG/2 ML VIAL IV PUSH SCH ×2 (14:00→21:28)
[2017-06-13] MEDS ORDERED: AMBI5TAB PO (17:38)
[2017-06-13] MEDS: ZOLPIDEM TARTRATE 5 MG TAB PO PRN (21:27)
[2017-06-13] MEDS: ATORVASTATIN 10 MG TAB PO SCH (21:27)
[2017-06-13] MEDS: SENNOSIDES 8.6 MG TAB PO SCH (21:27)
[2017-06-14] VITALS (28 sets, daily range): BP systolic 121–146; BP diastolic 62–91; PULSE 5–98; RESP 14–18; TEMP 97.6–99.8; O2SAT 91–96
[2017-06-14] MEDS: ZOLPIDEM TARTRATE 5 MG TAB PO PRN ×2 (01:10→21:25)
[2017-06-14] MEDS: RESP: ALBUTEROL 2.5 MG/IPRATROPIUM 0.5 MG NEB (SCH) NEB ×4 (04:22→21:00)
[2017-06-14 05:32] LABS: HEMATOCRIT 35.9 % (39.0-51.0); HEMOGLOBIN 12.5 GM/DL (13.0-17.0); MEAN CELL VOLUME 88.5 FL (80.0-100.0); MEAN CORPUSCULAR HEMOGLOBIN 30.9 PG (27.0-34.0); MEAN CORPUSCULAR HGB CONC 34.9 % (32.0-36.0); MEAN PLATELET VOLUME 8.4 FL (7.0-11.0); PLATELET COUNT 145 TH/MM3 (150-450); RED BLOOD COUNT 4.05 MIL/MM3 (4.50-5.90); RED CELL DISTRIBUTION WIDTH 13.9 % (11.6-17.2); WHITE BLOOD COUNT 9.2 TH/MM3 (4.0-11.0)
[2017-06-14 05:56] LABS: BICARBONATE 29.6 MEQ/L (21.0-32.0); CALCIUM 8.5 MG/DL (8.5-10.1); CREATININE 0.97 MG/DL (0.60-1.30); MAGNESIUM 2.2 MG/DL (1.5-2.5)
[2017-06-14] MEDS: METOCLOPRAMIDE HCL 10 MG/2 ML VIAL IV PUSH SCH ×2 (06:00→13:46)
[2017-06-14] MEDS: PANTOPRAZOLE SOD 40 MG DELAYED RELEASE TAB PO SCH (06:00)
[2017-06-14] MEDS: oxyCODONE/ACETAMINOPHEN 5 MG/325 MG TAB PO PRN ×3 (06:49→21:26)
[2017-06-14] MEDS: INSULIN ASPART SUPPLEMENTAL SCALE SQ SCH ×4 (08:00→20:09)
[2017-06-14] MEDS: POLYETHYLENE GLYCOL 17 GM PKG PO SCH (08:53)
[2017-06-14] MEDS: MAGNESIUM HYDROXIDE SUSP 30 ML CUP PO SCH (08:53)
[2017-06-14] MEDS: amLODIPine BESYLATE 5 MG TAB PO SCH (08:54)
[2017-06-14] MEDS: MULTIVITAMINS/MINERALS THERAPEUTIC TAB PO SCH (08:54)
[2017-06-14] MEDS: DOCUSATE SODIUM 100 MG CAP PO SCH ×2 (08:54→20:10)
[2017-06-14] MEDS: FUROSEMIDE 40 MG/4 ML VIAL IV PUSH SCH (08:54)
[2017-06-14] MEDS: ASPIRIN 81 MG CHEW TAB PO SCH (08:54)
[2017-06-14] MEDS: POTASSIUM CHLORIDE 20 MEQ CONTROLLED RELEASE TAB PO SCH (08:54)
[2017-06-14] MEDS: METOPROLOL TARTRATE 25 MG TAB PO SCH ×2 (08:55→20:11)
[2017-06-14] MEDS: SODIUM CHLORIDE 0.9% FLUSH 10 ML FLUSH IV FLUSH SCH ×2 (08:55→20:11)
[2017-06-14] MEDS: AMIODARONE 200 MG TAB PO SCH ×2 (08:59→20:11)
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
[2017-06-14] MEDS: CLOPIDOGREL 75 MG TAB PO SCH (11:57)
[2017-06-14] MEDS: SENNOSIDES 8.6 MG TAB PO SCH (20:10)
[2017-06-14] MEDS: ATORVASTATIN 10 MG TAB PO SCH (20:11)
[2017-06-15] VITALS (15 sets, daily range): BP systolic 129–139; BP diastolic 87–92; PULSE 74–99; RESP 17–18; TEMP 98.2–98.6; O2SAT 92–95
[2017-06-15] MEDS: oxyCODONE/ACETAMINOPHEN 5 MG/325 MG TAB PO PRN ×2 (02:32→06:22)
[2017-06-15] MEDS: RESP: ALBUTEROL 2.5 MG/IPRATROPIUM 0.5 MG NEB (SCH) NEB ×2 (03:38→10:00)
[2017-06-15] MEDS: PANTOPRAZOLE SOD 40 MG DELAYED RELEASE TAB PO SCH (05:53)
[2017-06-15] MEDS: INSULIN ASPART SUPPLEMENTAL SCALE SQ SCH (07:41)
[2017-06-15] MEDS: CLOPIDOGREL 75 MG TAB PO SCH (08:28)
[2017-06-15] MEDS: FUROSEMIDE 40 MG/4 ML VIAL IV PUSH SCH (08:28)
[2017-06-15] MEDS: METOPROLOL TARTRATE 25 MG TAB PO SCH (08:28)
[2017-06-15] MEDS: AMIODARONE 200 MG TAB PO SCH (08:28)
[2017-06-15] MEDS: amLODIPine BESYLATE 5 MG TAB PO SCH (08:28)
[2017-06-15] MEDS: DOCUSATE SODIUM 100 MG CAP PO SCH (08:28)
[2017-06-15] MEDS: ASPIRIN 81 MG CHEW TAB PO SCH (08:28)
[2017-06-15] MEDS: MULTIVITAMINS/MINERALS THERAPEUTIC TAB PO SCH (08:28)
[2017-06-15] MEDS: POLYETHYLENE GLYCOL 17 GM PKG PO SCH (08:30)
[2017-06-15] MEDS: MAGNESIUM HYDROXIDE SUSP 30 ML CUP PO SCH (08:30)
[2017-06-15] MEDS: POTASSIUM CHLORIDE 20 MEQ CONTROLLED RELEASE TAB PO SCH (08:30)
[2017-06-15] MEDS: SODIUM CHLORIDE 0.9% FLUSH 10 ML FLUSH IV FLUSH SCH (08:32)
[2017-06-15] MEDS ORDERED: PLAV75TA29 PO (10:31)
[2017-06-15] MEDS ORDERED: METO25TA3 PO (10:31)
[2017-06-15] MEDS ORDERED: OXYC1TAB63 PO (10:31)
[2017-06-15] MEDS ORDERED: PANT40TA3 PO (10:31)
[2017-06-15] MEDS ORDERED: LIPI10TA PO (10:31)
[2017-06-15] MEDS ORDERED: AMLO5 PO (10:31)
[2017-06-15] MEDS ORDERED: ASPI81 PO (10:31)
[2017-06-15] MEDS ORDERED: DOCU1CAP39 PO (10:31)
[2017-06-15] MEDS ORDERED: AMIO200T PO (10:31)
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
== END 2017-06-15 11:40 | disposition home health service (06) | DRG 234 ==
LOC: PHED 13:19 → PHEDA 15:40 → HCPC 19:47 → HCIS 06-11 07:00 → HCVI 06-11 14:50 → HCPC 06-12 12:00
PROVIDERS: ADMIT Thoracic Surgery (Cardiothoracic Vascular Surgery); ATTEND Thoracic Surgery (Cardiothoracic Vascular Surgery)
PROC: B2111ZZ Fluoroscopy of Multiple Coronary Arteries using Low Osmolar Contrast (ICD-10-PCS; 2017-06-09)
PROC: B2151ZZ Fluoroscopy of Left Heart using Low Osmolar Contrast (ICD-10-PCS; 2017-06-09)
PROC: 4A023N7 Measurement of Cardiac Sampling and Pressure, Left Heart, Percutaneous Approach (ICD-10-PCS; principal; 2017-06-09 11:15)
PROC: 02100AW Bypass Coronary Artery, One Artery from Aorta with Autologous Arterial Tissue, Open Approach (ICD-10-PCS; 2017-06-11)
PROC: 02100Z8 Bypass Coronary Artery, One Artery from Right Internal Mammary, Open Approach (ICD-10-PCS; 2017-06-11)
PROC: 03BB0ZZ Excision of Right Radial Artery, Open Approach (ICD-10-PCS; 2017-06-11)
PROC: 5A1221Z Performance of Cardiac Output, Continuous (ICD-10-PCS; 2017-06-11)
PROC: 02100Z9 Bypass Coronary Artery, One Artery from Left Internal Mammary, Open Approach (ICD-10-PCS; 2017-06-11 07:23)
DX: I21.4 Non-ST elevation (NSTEMI) myocardial infarction (principal); I10 Essential (primary) hypertension; I25.119 Atherosclerotic heart disease of native coronary artery with unspecified angina pectoris; R00.1 Bradycardia, unspecified; E78.5 Hyperlipidemia, unspecified; I34.0 Nonrheumatic mitral (valve) insufficiency; R11.0 Nausea; Z86.718 Personal history of other venous thrombosis and embolism; Z86.711 Personal history of pulmonary embolism; Z23 Encounter for immunization
CPT/HCPCS: 36430; 71045; 76937; 80048; 80053; 80061; 81001; 82550; 82552; 82948; 83036; 83735; 84484; 85025; 85027; 85610; 85730; 86850; 86900; 86901; 86920; 87641; 90471; 90732; 93005; 93306; 93458; 93880; 93970; 93998; 94002; 94010; 94150; 94640; 94664; 94667; 94668; 96374; 99152; 99153; C1769; C1893; G0009; J0131; J0153; J0171; J0690; J1644; J1815; J1817; J1885; J1940; J2150; J2250; J2370; J2405; J2440; J2720; J2765; J2930; J3010; J3370; J3475; J3480; J7030; J7050; J7120; J7613; P9016; P9045; P9047; Q9967